=== PATIENT | male | born 1965 | race Caucasian/White ===

== ENCOUNTER 2022-06-26 14:47 | Outpatient (CLI) | payer OTHER, SELFPAY | END 2022-06-26 14:48 | disposition home or self-care (01) | PROVIDERS: PCP Family Medicine; Visit Provider Family Medicine | DX: Z00.00 Encounter for general adult medical examination without abnormal findings (principal); E11.9 Type 2 diabetes mellitus without complications; I10 Essential (primary) hypertension; D64.9 Anemia, unspecified; Z13.6 Encounter for screening for cardiovascular disorders; Z12.5 Encounter for screening for malignant neoplasm of prostate | CPT/HCPCS: 80053; 80061; 82043; 82570; 84153 ==

== ENCOUNTER 2022-07-10 14:50 | Outpatient (CLI) | payer OTHER, SELFPAY | END 2022-07-10 14:51 | disposition home or self-care (01) | LOC: NFLDREF 07-11 00:36 | PROVIDERS: PCP Family Medicine; Referring Provider Family Medicine; Visit Provider Family Medicine | DX: R17 Unspecified jaundice (principal) | CPT/HCPCS: 80076 ==

== ENCOUNTER 2023-02-24 15:00 | Outpatient (CLI) | payer OTHER, SELFPAY | END 2023-02-24 15:01 | disposition home or self-care (01) | LOC: NFLDREF 02-27 19:19 | PROVIDERS: PCP Family Medicine; Referring Provider Family Medicine; Visit Provider Family Medicine | DX: E11.9 Type 2 diabetes mellitus without complications (principal); I10 Essential (primary) hypertension | CPT/HCPCS: 80053; 82043; 82248; 82570 ==

== ENCOUNTER 2023-09-14 09:13 | Emergency (ER) | payer OTHER, SELFPAY ==
[2023-09-14 09:16] VITALS: BP 165/91; PULSE 98; RESP 18; TEMP 36.8; BMI 29.7
--- NOTE | 2023-09-14 09:33 | ED.LOWEXIN ---
HPI - Extremity Injury (Lower) General Time Seen by Provider: 09:33 Date Seen: 09/14/23 Chief Complaint: Extremity Pain/Injury, Lower Stated Complaint: Left knee leg pain Time Seen by Provider: 09/14/23 09:32 Source: patient and RN notes reviewed Mode of arrival: ambulatory (With crutches) Limitations: no limitations History of Present Illness HPI Narrative: This 58-year-old male is coming to the ER with worsening left knee pain. He notes that he has been having acute on chronic knee pain, was seen in clinic last week, did have x-rays. He has an upcoming orthopedic appointment with Dr. Partida in about 2 weeks. He is wearing crutches, has found a neoprene knee sleeve to give him extra support on this left knee. He was able to do some gardening this weekend, just started to have acute worsening of his pain yesterday, cannot really even bear weight on the knee without significant pain. He found relief and was able to sleep by putting the sleeve on the knee last night. There is no acute trauma. His x-rays do show arthritis. He does have a history of a degenerative meniscal tear in the right knee and did have surgery for that with improvement. He is wondering about having an MRI here today. He states he cannot work right now with help painful the knee is. He does have underlying von Willebrand's disease. I have reviewed his notes and x-rays from his clinic visit last week. Related Data Home Medications ?Medication ?Instructions ?Recorded ?Confirmed milk thistle 150 mg capsule 150 mg PO BID 10/21/21 09/14/23 Previous Rx's ?Medication ?Instructions ?Recorded lisinopril 40 mg tablet 40 mg PO QDAY #90 tabs 10/09/22 amlodipine 5 mg tablet 5 mg PO DAILY #90 tabs 07/03/23 simvastatin 20 mg tablet 20 mg PO QDAY #90 tabs 07/03/23 metformin 500 mg tablet 250 mg (1/2 x 500 mg) PO BID #30 09/06/23 tabs Allergies Allergy/AdvReac Type Severity Reaction Status Date / Time aspirin Allergy Severe Vonwillenbrand's Verified 09/14/23 09:22 disease Review of Systems Narrative: As per HPI. [facility] Medical History Tobacco use (07/26/09) ?Z72.0 - Tobacco use (ICD-10) Right inguinal hernia (06/07/09) ?K40.90 - Unilateral inguinal hernia, without obstruction or gangrene, not specified as recurrent (ICD-10) Plantar fasciitis ?M72.2 - Plantar fascial fibromatosis (ICD-10) Pain of left lower extremity ?M79.605 - Pain in left leg (ICD-10) Low back pain (06/07/09) ?M54.50 - Low back pain, unspecified (ICD-10) Ingrowing toenail of left foot ?L60.0 - Ingrowing nail (ICD-10) History of depression (07/26/09) ?Z86.59 - Personal history of other mental and behavioral disorders (ICD-10) Heel pain ?M79.673 - Pain in unspecified foot (ICD-10) Encounter for pre-operative examination ?Z01.818 - Encounter for other preprocedural examination (ICD-10) Encounter for annual physical exam ?Z00.00 - Encounter for general adult medical examination without abnormal findings (ICD-10) Dysphagia ?R13.10 - Dysphagia, unspecified (ICD-10) Cough in adult ?R05.9 - Cough, unspecified (ICD-10) Surgical History S/P medial meniscus repair of right knee (07/30/21) ?Z98.890 - Other specified postprocedural states (ICD-10) History of inguinal hernia repair (06/07/09) ?Z98.890 - Other specified postprocedural states (ICD-10) ?Z87.19 - Personal history of other diseases of the digestive system (ICD-10) History of cholecystectomy (08/06/10) ?Z90.49 - Acquired absence of other specified parts of digestive tract (ICD-10) History of appendectomy (07/26/09) ?Z90.49 - Acquired absence of other specified parts of digestive tract (ICD-10) Social History Narrative: Hx tobacco use Smoking Status: Former smoker Little interest or pleasure in doing things: not at all Feeling down, depressed, or hopeless: not at all Exam Const: Vital Signs, click to edit/add: Vital Signs - 24 hr 09/14/23 09:16 Temperature 98.2 F Pulse Rate [Right Pulse Oximeter] 98 Respiratory Rate 18 Blood Pressure [Ri ght Upper Arm] 165/91 H Oxygen Delivery Me thod Room Air This 58-year-old male is ambulatory into the ED with crutches, did have the neoprene sleeve on the left knee which was taken down. There is no palpable joint effusion, no popliteal fossa masses noted, no significant tenderness. He has limitation on range of motion, can get his knee flexed to about 90? but I cannot freely mobilize his knee very well with flexion extension, is painful for him. Patella tracks midline. There certainly is no joint effusion. Neurovascular is intact, no lower extremity edema. Cannot really manipulate his knee to do a Eusebio's. Documenting provider has reviewed patient's vital signs: yes Course Course ED Course: Reviewed with patient that any MRI emergently is not indicated here. He needs the prior authorization which we cannot do emergently for him. I will make sure that the MRI has been ordered and that this process is going on, will also try to move up his orthopedic appointment. Reviewed with him that I can provide a note to be off work in the meantime. We did discuss pain management, I did offer something stronger if needed, he declines. He states that he is dealt with knee pain for some 30 years, has went through surgeries for ruptured appendicitis, his right knee meniscus repair and really has dealt with pain, does not feel he wants anything stronger. He will use Tylenol. He does wonder if he can potentially schedule his MRI while awaiting the prior authorization, nursing staff will check on that. We will call [facility]. Reevaluation(s) Time of Reevaluation #1: 10:12 Reevaluation #1: MRI is on the schedule for this coming per nursing staff. Consultations Consultation #1: Did speak with Dr. Sanchez personally. The order for the MRI is in, will be going through the prior authorization process through clinic. Patient will have to wait for this. Time: 09:54 Vital Signs Vital signs: Initial Vital Signs Temperature 98.2 F 09/14/23 09:16 Temperature Source Temporal Artery Scan 09/14/23 09:16 Pulse Rate 98 09/14/23 09:16 Respiratory Rate 18 09/14/23 09:16 Blood Pressure 165/91 H 09/14/23 09:16 Blood Pressure Mean 115 H 09/14/23 09:16 Blood Pressure Position Sitting 09/14/23 09:16 Oxygen Delivery Method Room Air 09/14/23 09:16 Vital Signs Temperature 98.2 F 09/14/23 09:16 Pulse Rate 98 09/14/23 09:16 Respiratory Rate 18 09/14/23 09:16 Blood Pressure 165/91 H 09/14/23 09:16 Oxygen Delivery Method Room Air 09/14/23 09:16 Temperature 98.2 F 09/14/23 09:16 Pulse Rate 98 09/14/23 09:16 Respiratory Rate 18 09/14/23 09:16 Blood Pressure 165/91 H 09/14/23 09:16 Oxygen Delivery Method Room Air 09/14/23 09:16 Discharge Plan Discharge Clinical Impression: Acute internal derangement of left knee, Osteoarthritis of left knee Patient Disposition: Home, Self-Care Condition: Stable Instructions: Osteoarthritis (ED) Additional Instructions: Use your crutches and knee brace that you have as needed for pain-free weight-bearing. Tylenol per bottle directions if needed for pain control. You orthopedic appointment has been moved up to September 22. Do agree that MRI is needed but it will need prior authorization and this is in process through the clinic already. Follow-up in clinic if further concerns about your knee in the interim. I did provide you a note to be out of work until September 22 when you can see Orthopedics. Activity Level: Activity as Tolerated Prescriptions: No Action milk thistle 150 mg capsule 150 mg PO BID Rx Instructions: give with meal/snack lisinopril 40 mg tablet 40 mg PO QDAY Qty: 90 1RF simvastatin 20 mg tablet 20 mg PO QDAY Qty: 90 0RF amlodipine 5 mg tablet 5 mg PO DAILY Qty: 90 0RF metformin 500 mg tablet 250 mg PO BID Qty: 30 0RF Rx Instructions: take 1/2 po bid with meals Follow Up/Referrals: Leland Suero MD [Primary Care Provider] - Stand Alone Forms: MyHealth Info Instructions
== END 2023-09-14 10:20 | disposition home or self-care (01) ==
PROVIDERS: Emergency Provider Family Medicine; PCP Family Medicine
DX: M23.92 Unspecified internal derangement of left knee (principal); M17.12 Unilateral primary osteoarthritis, left knee
CPT/HCPCS: 99282; 99283

== ENCOUNTER 2023-09-28 18:16 | Outpatient (CLI) | payer OTHER, SELFPAY | END 2023-09-28 18:17 | disposition home or self-care (01) | LOC: NFLDREF 10-01 05:33 | PROVIDERS: PCP Family Medicine; Referring Provider Family Medicine; Visit Provider Family Medicine | DX: Z00.00 Encounter for general adult medical examination without abnormal findings (principal); E11.9 Type 2 diabetes mellitus without complications; I10 Essential (primary) hypertension; E66.9 Obesity, unspecified; D68.00 Von Willebrand disease, unspecified; Z12.5 Encounter for screening for malignant neoplasm of prostate | CPT/HCPCS: 80053; 80061; 82043; 82570; G0103 ==

== ENCOUNTER 2023-09-30 12:40 | Outpatient (CLI) | payer OTHER, SELFPAY ==
--- NOTE | 2023-09-30 13:00 | MR_ITS ---
[address] [address] Phone:?[phone] Fax:?[phone] Referring Physician Information: Urbano Partida M.D. [id number] [facility] [address] Phone:?[phone] Fax:?[phone] Patient:Alexia Lugo D.O.B:?1965 Sex:?Male Phone:?[phone] [facility] MRN:?[id number] Exam Date:?09/30/2023 EXAM: MRI OF THE LEFT KNEE CLINICAL INFORMATION: The patient is a 58-year-old with left knee pain. Evaluate for meniscal root tear. PRIOR SURGERY: None reported. COMPARISON STUDIES: Comparison is made to the report of the prior MRI examination of the left knee dated 04/03/2016. TECHNICAL INFORMATION: Imaging was performed on a high-field, 1.5 Luly MR scanner. Coronal proton-density and coronal STIR imaging was performed in addition to sagittal proton-density and fat-suppressed proton-density imaging. Axial proton-density and fat-suppressed T2 imaging was also produced. FINDINGS: Articular/Extraarticular collections: Effusion: Mild to moderate. Popliteal cyst: Small to moderate, seen on sagittal series 6 image 6. Loose bodies: No well-defined intra-articular loose bodies are present. Subcutaneous and extraarticular soft tissues: Within normal limits. Osseous structures: No evidence for marrow edema or cortical injury. No evidence for fracture or stress injury. No evidence for destructive bony lesion. Ligamentous structures: ACL: Intact and normal in appearance. PCL: Intact and normal in appearance. MCL: Intact and normal in appearance. LCL: Intact and normal in appearance. Posterolateral corner: Intact and normal in appearance. Posteromedial corner: No posteromedial corner soft tissue injury. Semimembranosus and pes anserine tendons demonstrate no tendinopathy or associated bursitis. Extensor mechanism/Patellar retinacular structures: Patellar tendon: Intact, without tendinopathy. Quadriceps tendon: Intact, without tendinopathy. Retinacula: The medial and lateral retinacula are intact. The medial patellofemoral ligament is intact. Medial compartment: Medial meniscus: The medial meniscus is abnormal in appearance. There is radial tearing of the far posterior aspect of the medial meniscus at the meniscotibial attachment seen on coronal series 7 image 24 and on sagittal series 6 image 13. The area of tearing measures 7 mm in greatest dimension. Intrasubstance degeneration involving the anterior, middle, and posterior portions of the medial meniscus can be seen. No additional areas of well-defined tearing are noted. No parameniscal cyst formation is identified. Medial femoral condyle: Full-thickness and near full-thickness chondral loss can be seen involving the central and lateral weightbearing surfaces of the medial femoral condyle on coronal series 7 image 22 and on sagittal series 5 image 12. The area of chondromalacia and chondral loss measures 23 mm in mediolateral dimension and 25 mm in anteroposterior dimension. Medial tibial plateau: No chondromalacia, chondral defect, or osteochondral abnormality. Lateral compartment: Lateral meniscus: No evidence for lateral meniscal tearing is present. No evidence for parameniscal cyst formation can be seen. Lateral femoral condyle: No chondromalacia, chondral defect, or osteochondral abnormality. Lateral tibial plateau: No chondromalacia, chondral defect, or osteochondral abnormality. Patellofemoral compartment: Patella: Broad-based changes of grade II chondromalacia can be seen involving the patellar apex and adjacent portions of the medial and lateral patellar facets on axial series 3 image 12, measuring 24 mm in mediolateral dimension and 15 mm in craniocaudal dimension. Trochlea: No chondromalacia, chondral defect, or osteochondral abnormality. Neurovascular: No definite neurovascular abnormalities are seen. CONCLUSION: 1. Radial tearing of the far posterior aspect of the medial meniscus at the meniscotibial attachment. No lateral meniscal tearing is seen. 2. Full-thickness and near full-thickness chondral loss along the weightbearing surfaces of the medial femoral condyle. 3. 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 4. The cruciate and collateral ligaments appear intact. 5. No acute bony injuries are seen. [facility] Electronically signed on 09/30/2023 4:22:00 PM by Tony Sutton M.D.
== END 2023-09-30 12:41 | disposition home or self-care (01) ==
LOC: MRI 12:40
PROVIDERS: PCP Family Medicine; Visit Provider Orthopaedic Surgery
DX: M25.562 Pain in left knee (principal); S83.242A Other tear of medial meniscus, current injury, left knee, initial encounter; M22.42 Chondromalacia patellae, left knee; M23.92 Unspecified internal derangement of left knee
CPT/HCPCS: 73721

== ENCOUNTER 2023-10-13 05:59 | Day surgery (SDC) | payer OTHER, SELFPAY ==
[2023-10-13] VITALS (12 sets, daily range): BP systolic 134–151; BP diastolic 70–93; PULSE 65–78; RESP 16; TEMP 36.7–36.9; O2SAT 89–96; BMI 29.8
[2023-10-13] MEDS: SODIUM CHLORIDE 0.9 % (FLUSH) 10 ML SYRINGE IVF (06:30)
[2023-10-13] MEDS: LACTATED RINGERS 1000 ML 1,000 ML 100 ML IV ×2 (06:30→09:52)
[2023-10-13] MEDS: DESMOPRESSIN ACETATE 4 MCG/ML inj 30 MCG IVPB (07:30)
[2023-10-13] MEDS: CEFAZOLIN 2 GM INJ IVP (09:52)
--- NOTE | 2023-10-13 11:15 | PM.ORPRC ---
Procedure Note Date of procedure: 10/13/23 Procedure: PREOPERATIVE DIAGNOSIS: Left knee medial meniscus root tear POSTOPERATIVE DIAGNOSIS: Left knee medial meniscus root tear NAME OF OPERATION: Left knee arthroscopic medial meniscus root repair SURGEON: Urbano Partida MD SUPERVISOR BINDERY: JUSTYN Berumen ANESTHESIA: Spinal ESTIMATED BLOOD LOSS: 0 mL COMPLICATIONS: None SPECIMENS: None DRAINS: None PREOPERATIVE ANTIBIOTICS: Ancef 2 gram INDICATIONS: The patient is a 58-year-old male with a history of left knee medial pain. MRI scan is consistent with a medial meniscus root tear. Despite appropriate nonoperative management, including activity modification, antiinflammatories, [id number] pain medication, bracing, physical therapy, and injections they continue to have pain and disability. Operative intervention was offered. The risks, benefits and expected outcomes were discussed in detail. These included but were not limited to: Infection, bleeding, injury to blood vessel or nerve, venous thromboembolism. All questions were answered to their satisfaction. PROCEDURE: Spinal anesthesia was administered. The patient was placed supine on the operating room table. The left lower extremity was prepped and draped in the usual sterile fashion. The limb was exsanguinated with the Tony bandage. The pneumatic tourniquet was inflated to 300 mmHg. A standard anterolateral portal was established. The arthroscope was introduced. The working portal was established anteromedially. Diagnostic arthroscopy was performed with findings as follows: The suprapatellar pouch is normal. Articular surface on the patella shows grade 1/2 change. Articular surface on the trochlea shows grade 1/2 change. The medial gutter is normal. The medial compartment shows diffuse grade 3 change on the medial femoral condyle, grade 2 change on the medial tibial plateau. The medial meniscus has a radial tear of the posterior horn at the tibial attachment, detaching it from the tibia.. The notch shows the ACL to be intact. The lateral compartment shows normal articular cartilage on the lateral femoral condyle and lateral tibial plateau. The lateral meniscus is normal. The lateral gutter is normal. The few remaining fibers of meniscus attached to the tibia were released with the shaver. The footprint was debrided. Unstable chondral flaps on the medial femoral condyle were debrided. The knee scorpion was used to pass a fiber link x 2 in the posterior horn of the medial meniscus. The tibial drill guide was used over the footprint of the root. A longitudinal incision over the anteromedial face of the tibia was placed. The flip cutter was drilled into the footprint. The flip cutter was flipped and back cut 10 mm. It was removed and exchanged for a fiber stick. The fiber stick was brought out the anteromedial portal and was used to shuttle both of the fiber link luggage tag sutures on the posterior horn out the anteromedial tibia. We then tensioned the sutures and fixed them to the tibia with a SwiveLock anchor. This provided an excellent repair of the posterior tibial attachment of the medial meniscus to its anatomic footprint. The power pick was used to microfracture the notch both medially and laterally. Arthroscopic instruments were removed, the portal sites were Steri-Stripped closed, the incision over the tibia was closed with 3-0 Vicryl and 4-0 Monocryl. A dry dressing was applied, the tourniquet was released. Sponge and needle counts were correct x 2. The patient tolerated the procedure well. There were no apparent complications. They were carefully transferred to the hospital bed and taken to the postanesthesia care unit in satisfactory condition. PLAN: The patient will be discharged to home. He may weight bear as tolerates. Range of motion will be allowed from 0-90 degrees x 2 weeks then unrestricted range of motion. He will follow up in 2 weeks for a wound check.
--- NOTE | 2023-10-13 11:23 | W.ANESCHARGE ---
Anesthesia Charges Start Date/Time Anesthesia Start Date: 10/13/23 Anesthesia Start Time: 09:37 Stop Date/Time Anesthesia Stop Date: 10/13/23 Anesthesia Stop Time: 11:40
--- NOTE | 2023-10-13 12:22 | P.NB_ITS ---
Nerve Block Nerve Block Time Seen by Provider: 11:35 Date Seen: 10/13/23 Type of block requested by surgeon for post-operative analgesia: geniculars Side: left Time out performed: Yes Verification of patient name: Yes Verification of date of : Yes Site marking: site marked Name of person performing procedure: Alberto Ansari Continuous monitoring Was continuous monitoring of O2 sat, B/P, traffic monitor specialist, recorded every 15 minutes?: Yes Procedure Checklist: sterile prep, needles and gloves Ultrasound guided. Images saved: No Medications given in 5ml increments after negative aspiration: Ropivicaine %: 0.5 mL: 12 Needle gauge: 25 Patient tolerated procedure well: Yes Additional comments: Injected in 4ml increments after negative aspiration Block Charges Block Charge (with Pro Fee): Genicular Nerve Block Use of Ultrasound Machine for Block: No
--- NOTE | 2023-10-13 12:24 | W.ANESCHARGE ---
Anesthesia Charges Start Date/Time Anesthesia Start Date: 10/13/23 Anesthesia Start Time: 09:37 Stop Date/Time Anesthesia Stop Date: 10/13/23 Anesthesia Stop Time: 11:40
[2023-10-13] MEDS: METOCLOPRAMIDE HCL 5 MG/ML INJ 10 MG IVP (13:10)
== END 2023-10-13 13:35 | disposition home or self-care (01) ==
LOC: OR 06:00
PROVIDERS: PCP Family Medicine; Visit Provider Orthopaedic Surgery
PROC: (CPT 29882; principal; 2023-10-13 09:30)
DX: S83.242A Other tear of medial meniscus, current injury, left knee, initial encounter (principal); G89.18 Other acute postprocedural pain; E11.9 Type 2 diabetes mellitus without complications; I10 Essential (primary) hypertension
CPT/HCPCS: 29882; 01400; 64454; 82962; C1713; J0690; J1100; J1170; J2405; J2597; J2704; J2765; J2795; J3010; J7120

== ENCOUNTER 2023-10-21 13:41 | Outpatient (CLI) | payer OTHER, SELFPAY ==
--- NOTE | 2023-10-21 14:00 | CRLHL7_ITS ---
For Patients: As a result of the Century Cures Act, medical imaging exams and procedure reports are released immediately into your electronic medical record. You may view this report before your referring provider. If you have questions, please contact your health care provider. INDICATION: Left lower extremity tenderness, postprocedure TECHNIQUE: Ultrasound venous duplex lower left extremity. Compression venous exam was performed using gallegos-scale, color Doppler, and spectral Doppler analysis. COMPARISON: None. FINDINGS: Sonographic imaging demonstrates the left common femoral, deep femoral, superficial femoral, popliteal, posterior tibial and greater saphenous and the contralateral right common femoral veins to be fully compressible with normal color Doppler blood flow. IMPRESSION: Normal left lower extremity venous ultrasound, no sign of deep venous thrombosis. Dictated by Humberto Chávez MD @ 10/21/2023 2:35:39 PM (Electronically Signed)
== END 2023-10-21 13:42 | disposition home or self-care (01) ==
PROVIDERS: PCP Family Medicine; Visit Provider Physician Assistant
DX: M79.662 Pain in left lower leg (principal); Z98.890 Other specified postprocedural states
CPT/HCPCS: 93971

== ENCOUNTER 2024-01-07 09:00 | Outpatient (RCR) | payer OTHER, SELFPAY | END 2024-01-07 10:53 | disposition home or self-care (01) | PROVIDERS: PCP Family Medicine; Visit Provider Orthopaedic Surgery | DX: S83.204D Other tear of unspecified meniscus, current injury, left knee, subsequent encounter (principal); Z51.89 Encounter for other specified aftercare | CPT/HCPCS: 97110; 97112; 97140; 97162; 97530; 97535 ==

== ENCOUNTER 2024-03-03 09:11 | Emergency (ER) | payer OTHER, SELFPAY ==
[2024-03-03 09:16] VITALS: BP 149/97; PULSE 75; RESP 18; TEMP 36.6; O2SAT 98; BMI 30.7
--- NOTE | 2024-03-03 09:42 | ED_ITS ---
HPI - General Adult General Chief complaint: Neck Injury/Pain Stated complaint: Pos pinched nerve in neck, neck pain Time Seen by Provider: 03/03/24 09:12 History of Present Illness HPI narrative: come to ed with concerns of a painful neck. pain severe with movement. has known arthritis in his neck. did sleep on his left side all night. took 400 mg of ibuprofen at 0730. pain he noticed upon arising at 0700 . 58-year-old man presenting to the emergency department with complaint of neck pain especially on the left side. Does note some arthritis present in his neck. Noticed it really upon waking this morning. Any movement really hurts. No radicular pain. No swelling. No new injury. Has taken ibuprofen without relief. Does recall severe neck pain some years back indicating area of occipital insertion as point tenderness. This time especially on the left mid n betty. No sore throat or indication difficulty breathing. Related Data Home Medications ?Medication ?Instructions ?Recorded ?Confirmed milk thistle 150 mg capsule 150 mg PO BID 10/21/21 01/06/24 Previous Rx's ?Medication ?Instructions ?Recorded amlodipine 5 mg tablet 5 mg PO DAILY #90 tabs 09/29/23 lisinopril 40 mg tablet 40 mg PO QDAY #90 tabs 09/29/23 metformin 500 mg tablet 250 mg (1/2 x 500 mg) PO BID #90 09/29/23 tabs simvastatin 20 mg tablet 20 mg PO QDAY #90 tabs 09/29/23 ferrous gluconate 324 mg (38 mg 324 mg PO QDAY #90 tabs 10/22/23 iron) tablet Allergies Allergy/AdvReac Type Severity Reaction Status Date / Time aspirin Allergy Severe Vonwillenbrand's Verified 03/03/24 09:16 disease Review of Systems Status of ROS: Reports: 6 or more systems reviewed and unremarkable except as noted in History and below [facility] Medical History 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, unspecified eye (ICD-10) Osteoarthritis of right knee ?M17.11 - Unilateral primary osteoarthritis, right knee (ICD-10) Osteoarthritis of left knee ?M17.12 - Unilateral primary osteoarthritis, left knee (ICD-10) Tobacco use (07/26/09) ?Z72.0 - Tobacco use (ICD-10) Right inguinal hernia (06/07/09) ?K40.90 - Unilateral inguinal hernia, without obstruction or gangrene, not specified as recurrent (ICD-10) Plantar fasciitis ?M72.2 - Plantar fascial fibromatosis (ICD-10) Pain of left lower extremity ?M79.605 - Pain in left leg (ICD-10) Low back pain (06/07/09) ?M54.50 - Low back pain, unspecified (ICD-10) Ingrowing toenail of left foot ?L60.0 - Ingrowing nail (ICD-10) History of depression (07/26/09) ?Z86.59 - Personal history of other mental and behavioral disorders (ICD-10) Heel pain ?M79.673 - Pain in unspecified foot (ICD-10) Encounter for pre-operative examination ?Z01.818 - Encounter for other preprocedural examination (ICD-10) Encounter for annual physical exam ?Z00.00 - Encounter for general adult medical examination without abnormal findings (ICD-10) Dysphagia ?R13.10 - Dysphagia, unspecified (ICD-10) Cough in adult ?R05.9 - Cough, unspecified (ICD-10) Surgical History H/O medial meniscus repair of left knee (10/13/23) ?Z98.890 - Other specified postprocedural states (ICD-10) S/P medial meniscus repair of right knee (07/30/21) ?Z98.890 - Other specified postprocedural states (ICD-10) History of inguinal hernia repair (06/07/09) ?Z98.890 - Other specified postprocedural states (ICD-10) ?Z87.19 - Personal history of other diseases of the digestive system (ICD-10) History of cholecystectomy (08/06/10) ?Z90.49 - Acquired absence of other specified parts of digestive tract (ICD- 10) History of appendectomy (07/26/09) ?Z90.49 - Acquired absence of other specified parts of digestive tract (ICD- 10) Social History Narrative: Hx tobacco use Smoking Status: Former smoker What tobacco products do you use: cigarettes Smoking quit date/years: >15 years ago Do you use any of these nicotine containing products: None Second hand tobacco smoke exposure: No How often do you have a drink containing alcohol: monthly or less Alcohol type: beer How many standard drinks containing alcohol do you have on a typical day: 1 or 2 How often do you have six or more drinks on one occasion: Never AUDIT-C Alcohol total score: 1 Non-prescribed substance use: denies use Caffeine: Yes service: No Exam Narrative: Exam Narrative: Eyes are red rimmed. Is seated stiffly a blanket wrapped about him. There is a great deal of right trapezial and paracervical muscle tension not so much tenderness. Tenderness is primarily elicited with deeper palpation at the sulcus lateral to the paracervical musculatures on the left about in the middle of the neck. No midline neck or back tenderness. No pulsatile masses or unusual swellings. Went up other than stiffly peers be moving extremities with normal strength. Resistant to movement of his neck as it illicits more pain. Const: Vital Signs, click to edit/add: Vital Signs - 24 hr 03/03/24 09:16 Temperature 98 F Pulse Rate [Pulse Oximeter] 75 Respiratory Rate 18 Blood Pressure [Ri ght Upper Arm] 149/97 H Pulse Oximetry 98 Oxygen Delivery Me thod Room Air Documenting provider has reviewed patient's vital signs: yes Course Vital Signs Vital signs: Initial Vital Signs Temperature 98 F 03/03/24 09:16 Temperature Source Temporal Artery Scan 03/03/24 09:16 Pulse Rate 75 03/03/24 09:16 Pulse Rhythm Regular 03/03/24 09:16 Respiratory Rate 18 03/03/24 09:16 Blood Pressure 149/97 H 03/03/24 09:16 Blood Pressure Mean 114 H 03/03/24 09:16 Blood Pressure Position Semi-Fowlers 03/03/24 09:16 Pulse Oximetry 98 03/03/24 09:16 Oxygen Delivery Method Room Air 03/03/24 09:16 Vital Signs Temperature 98 F 03/03/24 09:16 Pulse Rate 75 03/03/24 09:16 Respiratory Rate 18 03/03/24 09:16 Blood Pressure 149/97 H 03/03/24 09:16 Pulse Oximetry 98 03/03/24 09:16 Oxygen Delivery Method Room Air 03/03/24 09:16 Temperature 98 F 03/03/24 09:16 Pulse Rate 75 03/03/24 09:16 Respiratory Rate 18 03/03/24 09:16 Blood Pressure 149/97 H 03/03/24 09:16 Pulse Oximetry 98 03/03/24 09:16 Oxygen Delivery Method Room Air 03/03/24 09:16 Medical Decision Making MDM Narrative Medical decision making narrative: This is not appear to be in occipital neuralgia at this point. I do not see any swelling to indicate vascular disruption. There are no radicular symptoms to suggest herniated disc as cause impinging on the nerve root. This does appear to be torticollis likely related to facet/osteoarthritic irritation. Muscle spasm. Without trauma or unusual weakness I do not think any imaging is necessary at this time. Discussed pain management. Would appreciate some potential immediate relief. Offered bupivacaine injection. Discussed risk benefits and proceeded to fan total of 3 mL in 2 points of maximal tenderness in the left neck. Tolerated this quite well. And did begin to offer some relief. Placed a soft collar is he thought it might be helpful. Prescribing then [place], prednisone and Flexeril from [facility]. Is to also continue with ibuprofen. Will likely need chiropractic or osteopathic or physical therapy involvement. See patient discharge plan for further discussion. Medical Records Medical records reviewed: Yes I reviewed the patient's medical records Discharge Plan Discharge Clinical Impression: Acute torticollis, Cervicalgia Patient Disposition: Home w/ Parent or Adult Condition: Stable Additional Instructions: Gentle pull-down stretching as demonstrated might be beneficial. See handout also on stretches for the upper back. Prescribing prednisone and [place] and Flexeril from [facility]. Can wear soft collar for comfort over this next week. Consider follow-up with chiropractic or osteopathic medicine intervention. Prescriptions: No Action metformin 500 mg tablet 250 mg PO BID Qty: 90 3RF Rx Instructions: take 1/2 po bid with meals amlodipine 5 mg tablet 5 mg PO DAILY Qty: 90 3RF lisinopril 40 mg tablet 40 mg PO QDAY Qty: 90 3RF simvastatin 20 mg tablet 20 mg PO QDAY Qty: 90 3RF milk thistle 150 mg capsule 150 mg PO BID Rx Instructions: give with meal/snack ferrous gluconate 324 mg (38 mg iron) tablet 324 mg PO QDAY Qty: 90 0RF Follow Up/Referrals: Leland Suero MD [Primary Care Provider] - Stand Alone Forms: [employer] Info Instructions
== END 2024-03-03 10:08 | disposition home or self-care (01) ==
LOC: ED 10:02
PROVIDERS: Emergency Provider Family Medicine; PCP Family Medicine
DX: M43.6 Torticollis (principal); M54.2 Cervicalgia
CPT/HCPCS: 99283; 99284

== ENCOUNTER 2024-04-11 21:00 | Emergency (ER) | payer OTHER, SELFPAY ==
[2024-04-11 21:09] VITALS: BP 189/97; PULSE 60; RESP 16; TEMP 35.9; O2SAT 97
[2024-04-11 22:05] LABS: PCR FLU A Negative PCR FLU A (Negative); PCR FLU B Negative PCR FLU B (Negative); PCR RSV Negative PCR RSV (Negative); SARS PCR* Negative SARS-CoV-2 (Negative)
--- NOTE | 2024-04-11 22:51 | ED_ITS ---
HPI - General Adult General Date Seen: 04/11/24 Chief complaint: Abdominal Pain Stated complaint: Stomach and back pain, vomiting Time Seen by Provider: 04/11/24 22:25 History of Present Illness HPI narrative: 58-year-old gentleman with history of type 2 diabetes, elevated BMI, hypertension, cervical radiculopathy, von Willebrand's disease presenting to emergency department this evening with nausea and abdominal pain. Symptoms began this morning around 8:00 a.m.. History is limited by the patient's pain and nausea so supplements his history. He has a past surgical history including cholecystectomy, appendectomy, and some sort of stomach surgery that occurred when he was an infant. Apparently ?the plumbing of his stomach was not hooked up right. ? He has developed generalized abdominal pain, worsening left upper quadrant today they got worse throughout the afternoon. It is associated with repetitive episodes of nonbloody, nonbilious emesis. Bowel movements were normal yesterday. Today not had any bowel movement. He says he feels like he needs to have a stool but cannot. Urination has been normal. He has not had a fever. No clear exacerbating or alleviating factors for the pain and nausea. No known sick exposures. is not sick. Related Data Home Medications ?Medication ?Instructions ?Recorded ?Confirmed milk thistle 150 mg capsule 150 mg PO BID 10/21/21 04/11/24 Previous Rx's ?Medication ?Instructions ?Recorded amlodipine 5 mg tablet 5 mg PO DAILY #90 tabs 09/29/23 lisinopril 40 mg tablet 40 mg PO QDAY #90 tabs 09/29/23 metformin 500 mg tablet 250 mg (1/2 x 500 mg) PO BID #90 09/29/23 tabs simvastatin 20 mg tablet 20 mg PO QDAY #90 tabs 09/29/23 Allergies Allergy/AdvReac Type Severity Reaction Status Date / Time aspirin Allergy Severe Vonchristinebrand's Verified 03/03/24 09:16 disease [facility] Medical History 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, unspecified eye (ICD-10) Osteoarthritis of right knee ?M17.11 - Unilateral primary osteoarthritis, right knee (ICD-10) Osteoarthritis of left knee ?M17.12 - Unilateral primary osteoarthritis, left knee (ICD-10) Tobacco use (07/26/09) ?Z72.0 - Tobacco use (ICD-10) Right inguinal hernia (06/07/09) ?K40.90 - Unilateral inguinal hernia, without obstruction or gangrene, not specified as recurrent (ICD-10) Plantar fasciitis ?M72.2 - Plantar fascial fibromatosis (ICD-10) Pain of left lower extremity ?M79.605 - Pain in left leg (ICD-10) Low back pain (06/07/09) ?M54.50 - Low back pain, unspecified (ICD-10) Ingrowing toenail of left foot ?L60.0 - Ingrowing nail (ICD-10) History of depression (07/26/09) ?Z86.59 - Personal history of other mental and behavioral disorders (ICD-10) Heel pain ?M79.673 - Pain in unspecified foot (ICD-10) Encounter for pre-operative examination ?Z01.818 - Encounter for other preprocedural examination (ICD-10) Encounter for annual physical exam ?Z00.00 - Encounter for general adult medical examination without abnormal findings (ICD-10) Dysphagia ?R13.10 - Dysphagia, unspecified (ICD-10) Cough in adult ?R05.9 - Cough, unspecified (ICD-10) Surgical History H/O medial meniscus repair of left knee (10/13/23) ?Z98.890 - Other specified postprocedural states (ICD-10) S/P medial meniscus repair of right knee (07/30/21) ?Z98.890 - Other specified postprocedural states (ICD-10) History of inguinal hernia repair (06/07/09) ?Z98.890 - Other specified postprocedural states (ICD-10) ?Z87.19 - Personal history of other diseases of the digestive system (ICD-10) History of cholecystectomy (08/06/10) ?Z90.49 - Acquired absence of other specified parts of digestive tract (ICD- 10) History of appendectomy (07/26/09) ?Z90.49 - Acquired absence of other specified parts of digestive tract (ICD- 10) Social History Narrative: Hx tobacco use Smoking Status: Former smoker What tobacco products do you use: cigarettes Smoking quit date/years: >15 years ago Do you use any of these nicotine containing products: None Second hand tobacco smoke exposure: No How often do you have a drink containing alcohol: monthly or less Alcohol type: beer How many standard drinks containing alcohol do you have on a typical day: 1 or 2 How often do you have six or more drinks on one occasion: Never AUDIT-C Alcohol total score: 1 Non-prescribed substance use: denies use Caffeine: Yes service: No Exam Narrative: Exam Narrative: Constitutional: Appears well-developed and well-nourished. Alert. He is holding his emesis bag right below his mouth and does not want to talk due to discomfort and nausea. I am able to slowly lie him back for abdominal exam. HENT: Head: Atraumatic. Nose: Nose normal. Mouth/Throat: Oral mucosa is clear and moist. no trismus. Eyes: Conjunctivae normal. EOM normal. Pupils equal, round, and reactive to light. No scleral icterus. Neck: Normal range of motion. Neck supple. No tracheal deviation present. Cardiovascular: Normal rate, regular rhythm. No gallop. No friction rub. No murmur heard. Symmetric radial artery pulses Pulmonary/Chest: Effort normal. No stridor. No respiratory distress. No wheezes. No rales. No rhonchi . No tenderness. Abdominal: Soft. Bowel sounds normal. No distension. No mass. Diffuse tenderness. Healed vertical midline ventral incision above the umbilicus. No rebound. Positive upper guarding. Musculoskeletal: RUE: Normal range of motion. No tenderness. No deformity LUE: Normal range of motion. No tenderness. No deformity RLE: Normal range of motion. No edema. No tenderness. No deformity LLE: Normal range of motion. No edema. No tenderness. No deformity Neurological: Alert and oriented to person, place, and time. Normal strength. CN II-VII intact. No sensory deficit. GCS eye subscore is 4. GCS verbal subscore is 5. GCS motor subscore is 6. Normal coordination Skin: Skin is warm and dry. No rash noted. No pallor. Normal capillary refill. Psychiatric: Normal mood. Normal affect. Const: Vital Signs, click to edit/add: Vital Signs - 24 hr 04/11/24 21:09 Temperature 96.6 F L Pulse Rate [Pulse Oximeter] 60 Respiratory Rate 16 Blood Pressure [Ri ght Upper Arm] 189/97 H Pulse Oximetry 97 Oxygen Delivery Me thod Room Air Course Vital Signs Vital signs: Initial Vital Signs Temperature 96.6 F L 04/11/24 21:09 Temperature Source Temporal Artery Scan 04/11/24 21:09 Pulse Rate 60 04/11/24 21:09 Respiratory Rate 16 04/11/24 21:09 Blood Pressure 189/97 H 04/11/24 21:09 Blood Pressure Mean 127 H 04/11/24 21:09 Blood Pressure Position Sitting 04/11/24 21:09 Pulse Oximetry 97 04/11/24 21:09 Oxygen Delivery Method Room Air 04/11/24 21:09 Vital Signs Temperature 96.6 F L 04/11/24 21:09 Pulse Rate 60 04/11/24 21:09 Respiratory Rate 16 04/11/24 21:09 Blood Pressure 189/97 H 04/11/24 21:09 Pulse Oximetry 97 04/11/24 21:09 Oxygen Delivery Method Room Air 04/11/24 21:09 Temperature 96.6 F L 04/11/24 21:09 Pulse Rate 60 04/11/24 21:09 Respiratory Rate 16 04/11/24 21:09 Blood Pressure 189/97 H 04/11/24 21:09 Pulse Oximetry 97 04/11/24 21:09 Oxygen Delivery Method Room Air 04/11/24 21:09 Medications Administered Medications: Generic Name Dose Route Start Last Admin Trade Name Frenicholas PRN Reason Stop Dose Admin Hydromorphone HCl 0.5 mg 04/11/24 22:57 04/12/24 00:24 Hydromorphone 0.5 Mg/0.5 Ml Inj IVP 0.5 mg Q1H PRN Administration Pain Discontinued Medications Generic Name Dose Route Start Last Admin Trade Name Freq PRN Reason Stop Dose Admin Sodium Chloride 500 mls @ 500 mls/hr 04/11/24 22:57 04/12/24 00:20 0.9 % Sodium Chloride 500 Ml IV 04/11/24 23:56 Infused .Q1H ONE Infusion Ondansetron HCl 4 mg 04/11/24 22:57 04/11/24 23:16 Ondansetron 2 Mg/Ml Inj IVP 04/11/24 22:58 4 mg ONCE ONE Administration Medical Decision Making MDM Narrative Medical decision making narrative: Presented to the Emergency Department with nausea, repetitive vomiting, and abdominal pain. Pain is more prominent on the left in the left upper quadrant than on the right abdomen. The differential diagnosis of abdominal pain includes: Bowel Obstruction, Ulcer, Ischemia, Diverticulitis, Pancreatitis, UTI, kidney stone, Enteritis/Colitis, amongst many other etiologies. Patient is status post appendectomy and cholecystectomy. Laboratory testing does not reveal a cause for the patient's pain. CT scan is obtained and shows evidence for a 9 mm obstructing stone in the proximal left UE ureter. This is likely the cause for the patient's symptoms. Patient will require hospitalization due to the severity of his pain, only partly controlled with IV opiates, and nausea. Additionally since the stone is large and proximal it is not likely to pass in the outpatient setting. Patient will require hospitalization for pain control and expeditious urology consultation. Urinalysis is negative for infection. There is no evidence for renal failure associated with the kidney stone. No need for emergent transfer but does need expeditious transfer. Unfortunately [facility] [place] [facility] I have contacted [facility], [facility], [facility], [facility], [place], and none have [facility] open beds [facility]. I have also contacted [facility] and they have no open beds but have placed the patient on to a wait list. At this point he will have to board here in the ER. I have ordered maintenance IV fluids and p.r.n. pain meds. Discussed with my partner, Dr. Valverde, will monitor his condition overnight. Lab Data Labs: Lab Results 04/11/24 04/11/24 04/12/24 Range/Units 21:13 23:15 00:30 WBC 12.22 H (4.50-11.00) K/uL RBC 5.48 (4.30-5.90) m/uL Hgb 16.4 (13.5-17.5) gm/dL Hct 47.7 (37.0-53.0) % MCV 87 (80-100) fL MCH 30 (26-34) pg MCHC 34 (32-36) gm/dL RDW Coeff of Abelardo 12.2 (11.5-15.5) % Plt Count 212 (140-440) K/uL Neut % (Auto) 88.6 H (42.0-72.0) % Lymph % (Auto) 6.1 L (20-44) % Fleming % (Auto) 4.8 (0.0-11.0) % Eos % (Auto) 0.1 (0.0-7.0) % Baso % (Auto) 0.2 (0.0-3.0) % Neut # (Auto) 10.80 H (1.7-7.0) K/uL Lymph # (Auto) 0.70 L (0.90-2.90) K/uL Fleming # (Auto) 0.60 (0.00-0.90) K/UL Eos # (Auto) 0.00 (0.00-0.50) K/uL Baso # (Auto) 0.00 (0.00-0.30) K/uL Abs Immat Gran (auto) 0.00 (0.00-0.30) K/uL Imm/Tot Granulo (auto) 0.2 % Sodium 137 (135-149) mmol/L Potassium 3.6 (3.6-5.1) mmol/L Chloride 100 (96-114) mmol/L Carbon Dioxide 27 (20-32) mmol/L Anion Gap 10 (7-15) mEq/L BUN 16 (7-30) mg/dL Creatinine 1.2 (0.5-1.5) mg/dL Estimated Creat Clear 70.59 Estimated GFR 70 ml/min Glucose 235 H (60-115) mg/dL Lactate 1.5 (0.5-1.9) mmol/L Calcium 9.4 (8.4-10.6) mg/dL Total Bilirubin 2.3 H (0.1-1.5) mg/dL AST 23 (12-35) U/L ALT 26 (4-50) U/L Alkaline Phosphatase 110 (40-150) U/L Total Protein 7.8 (6.0-8.3) g/dL Albumin 4.9 (3.3-5.0) g/dL Lipase 97 (23-300) U/L Urine Color Yellow (Yellow) Urine Appearance Clear (Clear) Urine pH 7.0 (5.0-8.5) Ur Specific [place] 1.015 (1.000-1.030) Urine Protein Negative (Negative) Urine Glucose (UA) 1+ A (Negative) Urine Ketones 2+ A (Negative) Urine Blood Negative (Negative) Urine Nitrite Negative (Negative) Urine Bilirubin Negative (Negative) Urine Urobilinogen 0.2 (0.2-1.0) Ur Leukocyte Esterase Negative (Negative) Urine RBC 0-2 (0-2) Urine WBC 0-2 (0-5) Ur Squamous Epith Cells Few (None-Few) Urine Bacteria None (None) SARS-CoV-2 (PCR) Negative SARS-CoV-2 (Negative) Influenza Type A (PCR) Negative PCR FLU A (Negative) Influenza Type B (PCR) Negative PCR FLU B (Negative) RSV (PCR) Negative PCR RSV (Negative) Imaging Data CT scan - abdomen: Attestation: I have reviewed the pertinent imaging results. Radiologist's impression: Impression: 1. Obstructing left 9 millimeter proximal ureteral stone with mild to moderate hydronephrosis. 2. Additional nonobstructing left renal stone present. Discharge Plan Discharge Prescriptions: No Action metformin 500 mg tablet 250 mg PO BID Qty: 90 3RF Rx Instructions: take 1/2 po bid with meals amlodipine 5 mg tablet 5 mg PO DAILY Qty: 90 3RF lisinopril 40 mg tablet 40 mg PO QDAY Qty: 90 3RF simvastatin 20 mg tablet 20 mg PO QDAY Qty: 90 3RF milk thistle 150 mg capsule 150 mg PO BID Rx Instructions: give with meal/snack Follow Up/Referrals: Leland Suero MD [Primary Care Provider] -
--- NOTE | 2024-04-11 22:57 | CRLHL7_ITS ---
For Patients: As a result of the Century Cures Act, medical imaging exams and procedure reports are released immediately into your electronic medical record. You may view this report before your referring provider. If you have questions, please contact your health care provider. Indication: Left upper quadrant abdominal pain, vomiting Technique: CT through the abdomen and pelvis following 106 mL Isovue 370 IV contrast Comparison: CT abdomen and pelvis performed 09/16/2011 Findings: Lower chest: No acute abnormality appreciated. Hepatobiliary: No significant parenchymal abnormality is appreciated. Cholecystectomy. Spleen: Unremarkable. Pancreas: No acute abnormality appreciated. Adrenal glands: No acute abnormality appreciated. Kidneys: [id number] left hydronephrosis. Proximal left ureteral stone measures 9 millimeters. Additional nonobstructing left collecting system stone present. Delayed left nephrogram. Bowel: No obstruction. No focal perienteric or pericolonic stranding is appreciated. Vascular: Atherosclerosis. Lymph nodes: No gross lymphadenopathy. Peritoneum: No free air. No free fluid. : No acute abnormality appreciated. Soft tissues: No acute abnormality appreciated. Bones: No acute fracture. No lytic or blastic lesion. Impression: 1. Obstructing left 9 millimeter proximal ureteral stone with mild to moderate hydronephrosis. 2. Additional nonobstructing left renal stone present. Please note that all CT scans at this facility use dose modulation, iterative reconstruction, and/or weight-based dosing when appropriate to reduce radiation dose to as low as reasonably achievable. Dictated by Geovanni Trinidad MD @ 04/12/2024 12:29:54 AM (Electronically Signed)
[2024-04-11] MEDS: 0.9 % SODIUM CHLORIDE 500 ML 500 ML IV (23:15)
[2024-04-11] MEDS: ONDANSETRON 2 MG/ML inj 4 MG IVP (23:16)
[2024-04-11] MEDS: HYDROmorphone 0.5 mg/0.5 ml inj IVP (23:16)
[2024-04-11 23:28] LABS: Lactate* 1.5 mmol/L (0.5-1.9)
[2024-04-11 23:32] LABS: Basophils Percent Auto 0.2 % (0.0-3.0); Eosinophils Percent Auto 0.1 % (0.0-7.0); Hematocrit 47.7 % (37.0-53.0); Hemoglobin* 16.4 gm/dL (13.5-17.5); Immature Granulocytes Pct Auto 0.2 %; Lymphocytes Percent Auto 6.1 % (20-44); Mean Corpuscular HGB Conc 34 gm/dL (32-36); Mean Corpuscular Hemoglobin 30 pg (26-34); Mean Corpuscular Volume 87 fL (80-100); Monocytes Percent Auto 4.8 % (0.0-11.0); Neutrophils Percent Auto 88.6 % (42.0-72.0); Platelet Count* 212 K/uL (140-440); RDW Coefficient of Variation % 12.2 % (11.5-15.5); Red Blood Count 5.48 m/uL (4.30-5.90); White Blood Count* 12.22 K/uL (4.50-11.00)
[2024-04-11 23:33] LABS: Slide Review Reflex No
[2024-04-11 23:48] LABS: Albumin* 4.9 g/dL (3.3-5.0)
[2024-04-11 23:49] LABS: Chloride* 100 mmol/L (96-114); Potassium* 3.6 mmol/L (3.6-5.1); Sodium* 137 mmol/L (135-149)
[2024-04-11 23:51] LABS: Anion Gap 10 mEq/L (7-15); Aspartate Amino Transferase* 23 U/L (12-35); Bilirubin Total* 2.3 mg/dL (0.1-1.5); Carbon Dioxide* 27 mmol/L (20-32); Creatinine* 1.2 mg/dL (0.5-1.5); Est. Creatinine Clearance* 70.59; Estimated Glomerular Filt Rate 70 ml/min; Total Protein* 7.8 g/dL (6.0-8.3)
[2024-04-11 23:52] LABS: Alanine Aminotransferase* 26 U/L (4-50); Alkaline Phosphatase* 110 U/L (40-150); Blood Urea Nitrogen* 16 mg/dL (7-30); Calcium* 9.4 mg/dL (8.4-10.6); Glucose* 235 mg/dL (60-115); Lipase* 97 U/L (23-300)
[2024-04-12] VITALS (43 sets, daily range): BP systolic 150–190; BP diastolic 87–105; PULSE 57–108; RESP 16–20; O2SAT 92–98
[2024-04-12] MEDS: HYDROmorphone 0.5 mg/0.5 ml inj IVP ×7 (00:24→20:15)
[2024-04-12 00:53] LABS: Appearance Urine Clear (Clear); Bilirubin Urine Negative (Negative); Blood Urine Negative (Negative); Color Urine Yellow (Yellow); Glucose Urine 1+ (Negative); Ketones Urine 2+ (Negative); Leukocyte Esterase Urine Negative (Negative); Nitrite Urine Negative (Negative); Protein Urine Negative (Negative); Specific Gravity Urine 1.015 (1.000-1.030); Urobilinogen Urine 0.2 (0.2-1.0)
[2024-04-12 00:55] LABS: RBC Urine 0-2 (0-2); Squamous Epithelial Cell Urine Few (None-Few); WBC Urine 0-2 (0-5)
[2024-04-12] MEDS: 0.9 % SODIUM CHLORIDE 1000 ml 1,000 ML 125 ML IV ×3 (01:45→18:03)
[2024-04-12] MEDS: ONDANSETRON 2 MG/ML inj 4 MG IVP ×2 (04:35→18:16)
[2024-04-12] MEDS: KETOROLAC 15 MG/ML inj IVP (10:51)
[2024-04-12] MEDS: AMLODIPINE 5 MG TABLET PO (18:00)
[2024-04-12] MEDS: lisinopriL 20 MG TABLET 40 MG PO (18:00)
[2024-04-12] MEDS: TAMSULOSIN HCL 0.4 MG CAPSULE PO (18:00)
== END 2024-04-12 20:50 | disposition home or self-care (01) ==
PROVIDERS: Student in an Organized Health Care Education/Training Program; Emergency Provider Emergency Medicine; PCP Family Medicine
DX: R36.9 Urethral discharge, unspecified (principal)
CPT/HCPCS: 36415; 74177; 80053; 81001; 83605; 83690; 85025; 87631; 96374; 96375; 96376; 99284; A0425; A0427; A9270; J1171; J1885; J2405; J7030; Q9967

== ENCOUNTER 2024-04-18 10:38 | Emergency (ER) | payer OTHER, SELFPAY ==
[2024-04-18 10:48] VITALS: BP 139/98; PULSE 102; RESP 16; TEMP 36.7; BMI 29.3
--- NOTE | 2024-04-18 11:24 | CRLHL7_ITS ---
For Patients: As a result of the Century Cures Act, medical imaging exams and procedure reports are released immediately into your electronic medical record. You may view this report before your referring provider. If you have questions, please contact your health care provider. Indication: Severe bleeding around catheter. Technique: Ultrasound of the kidneys and bladder was performed with grayscale and color Doppler imaging. Comparison: CT 04/11/2024. Findings: Right kidney measures 11.1 cm in length and left kidney measures 12.4 cm in length. Normal renal size and cortical thickness. Normal renal echogenicity. No hydronephrosis. Left lower pole renal calculus measures up to 5 mm. The previously seen left ureteropelvic junction calculus is not well visualized sonographically. No renal cyst or mass. No perinephric fluid. Bladder: A urinary catheter is seen within the decompressed bladder. Bladder volume measures 23 mL. Circumferential bladder wall thickening is present. A small amount of air is seen within the non dependent portion of the bladder and there is also a small amount of bladder debris. Bilateral ureteral jets are visualized on color Doppler. Echogenic structure within the dependent portion of the bladder on long cine images may represent small bladder calculi seen on recent CT. The prostate is enlarged with prostate volume measuring 58.2 mL. Impression: 1. Previously seen left hydronephrosis and ureteropelvic junction calculus are not visualized on today`s examination. 2. Nonobstructing left renal calculus measures 5 mm. 3. Interval placement of a urinary catheter with decompressed bladder. Mild bladder wall thickening which may be due to underdistention versus cystitis. Small amount of bladder debris. Echogenic foci within the bladder likely represent small bladder calculi as seen on recent CT. 4. Prostatomegaly. Dictated by Jennifer Garza MD @ 04/18/2024 12:32:38 PM (Electronically Signed)
[2024-04-18 11:55] LABS: Basophils Absolute Auto 0.03 K/uL (0.00-0.30); Basophils Percent Auto 0.5 % (0.0-3.0); Eosinophils Absolute Auto 0.16 K/uL (0.00-0.50); Eosinophils Percent Auto 2.8 % (0.0-7.0); Hematocrit 37.8 % (37.0-53.0); Hemoglobin* 13.2 gm/dL (13.5-17.5); Immature Granulocytes Abs Auto 0.01 K/uL (0.00-0.30); Immature Granulocytes Pct Auto 0.2 %; Lymphocytes Percent Auto 16.3 % (20-44); Mean Corpuscular HGB Conc 35 gm/dL (32-36); Mean Corpuscular Hemoglobin 30 pg (26-34); Mean Corpuscular Volume 87 fL (80-100); Monocytes Percent Auto 8.7 % (0.0-11.0); Neutrophils Absolute Auto 4.04 K/uL (1.7-7.0); Neutrophils Percent Auto 71.5 % (42.0-72.0); Platelet Count* 198 K/uL (140-440); RDW Coefficient of Variation % 12.1 % (11.5-15.5); Red Blood Count 4.36 m/uL (4.30-5.90); White Blood Count* 5.65 K/uL (4.50-11.00)
[2024-04-18 11:57] LABS: Slide Review Reflex No
[2024-04-18 12:01] LABS: Chloride* 104 mmol/L (96-114); Potassium* 3.4 mmol/L (3.6-5.1); Sodium* 138 mmol/L (135-149)
--- NOTE | 2024-04-18 12:03 | ED.MALEGU ---
HPI - Male Genitourinary General Date Seen: 04/18/24 Chief complaint: Urogenital Problems, Male Stated complaint: excessive bleeding from penis Time Seen by Provider: 04/18/24 10:39 Source: patient Mode of arrival: ambulatory Limitations: no limitations History of Present Illness HPI Narrative: Patient is a 58-year-old male presenting for bleeding from his urethra. Last week he had a kidney stone removed and a stent placed in his ureter. He had some difficulty urinating a large amount of blood clots which eventually lead him needing a Pelayo. On Thursday it got clogged with blood clots and had to be irrigated multiple times at [facility], this was where the Pelayo was placed initially. He also had some bleeding around the Pelayo at that time along with blood in his urine. Today he noticed a large amount of bleeding from his urethra. He states it was squirting out using the pull out a clot from his urethra. He has not noticed any blood in his Pelayo bag though. The bleeding has since improved but he was concerned due to having von Willebrand's disease and came to the emergency department for evaluation. He does state as far as he noticed a severe case of von Willebrand's disease. Denies lightheadedness, weakness, numbness, vision changes, chest pain, shortness of breath. Does feel like he has been having some left lower abdominal pain but does note he kinked the Pelayo catheter to being was born in his underwear and is still kinked at this time. Related Data Home Medications ?Medication ?Instructions ?Recorded ?Confirmed milk thistle 150 mg capsule 150 mg PO BID 10/21/21 04/18/24 metformin 500 mg tablet 250 mg PO BIDWM 04/12/24 04/18/24 simvastatin 20 mg tablet 20 mg PO DAILY 04/12/24 04/18/24 Previous Rx's ?Medication ?Instructions ?Recorded amlodipine 5 mg tablet 5 mg PO DAILY #90 tabs 09/29/23 lisinopril 40 mg tablet 40 mg PO QDAY #90 tabs 09/29/23 Allergies Allergy/AdvReac Type Severity Reaction Status Date / Time aspirin Allergy Severe Vonwillenbrand's Verified 04/18/24 13:41 disease Review of Systems Status of ROS: Reports: 10 or more systems reviewed and unremarkable except as noted in History and below [facility] Medical History 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, unspecified eye (ICD-10) Osteoarthritis of right knee ?M17.11 - Unilateral primary osteoarthritis, right knee (ICD-10) Osteoarthritis of left knee ?M17.12 - Unilateral primary osteoarthritis, left knee (ICD-10) Tobacco use (07/26/09) ?Z72.0 - Tobacco use (ICD-10) Right inguinal hernia (06/07/09) ?K40.90 - Unilateral inguinal hernia, without obstruction or gangrene, not specified as recurrent (ICD-10) Plantar fasciitis ?M72.2 - Plantar fascial fibromatosis (ICD-10) Pain of left lower extremity ?M79.605 - Pain in left leg (ICD-10) Low back pain (06/07/09) ?M54.50 - Low back pain, unspecified (ICD-10) Ingrowing toenail of left foot ?L60.0 - Ingrowing nail (ICD-10) History of depression (07/26/09) ?Z86.59 - Personal history of other mental and behavioral disorders (ICD-10) Heel pain ?M79.673 - Pain in unspecified foot (ICD-10) Encounter for pre-operative examination ?Z01.818 - Encounter for other preprocedural examination (ICD-10) Encounter for annual physical exam ?Z00.00 - Encounter for general adult medical examination without abnormal findings (ICD-10) Dysphagia ?R13.10 - Dysphagia, unspecified (ICD-10) Cough in adult ?R05.9 - Cough, unspecified (ICD-10) Surgical History H/O medial meniscus repair of left knee (10/13/23) ?Z98.890 - Other specified postprocedural states (ICD-10) S/P medial meniscus repair of right knee (07/30/21) ?Z98.890 - Other specified postprocedural states (ICD-10) History of inguinal hernia repair (06/07/09) ?Z98.890 - Other specified postprocedural states (ICD-10) ?Z87.19 - Personal history of other diseases of the digestive system (ICD-10) History of cholecystectomy (08/06/10) ?Z90.49 - Acquired absence of other specified parts of digestive tract (ICD-10) History of appendectomy (07/26/09) ?Z90.49 - Acquired absence of other specified parts of digestive tract (ICD-10) Social History Narrative: Hx tobacco use Smoking Status: Former smoker What tobacco products do you use: cigarettes Smoking quit date/years: >15 years ago Do you use any of these nicotine containing products: None Second hand tobacco smoke exposure: No How often do you have a drink containing alcohol: monthly or less Alcohol type: beer How many standard drinks containing alcohol do you have on a typical day: 1 or 2 How often do you have six or more drinks on one occasion: Never AUDIT-C Alcohol total score: 1 Non-prescribed substance use: denies use Caffeine: Yes service: No Exam Narrative: Exam Narrative: Const: Well-nourished, Well-developed, in mild distress Eyes: PERRL, no conjunctival injection, and symmetrical lids HENT: Atraumatic external nose and ears. Moist mucous membranes. Neck: Symmetric, trachea midline, No thyromegaly. CVS: RRR, No murmurs or gallops. Peripheral pulses 2+ and equal in all extremities RESP: Unlabored respiratory effort. Clear to auscultation bilaterally. GI: Nontender/Nondistended, No rebound or guarding. : Blood seen around the urethral meatus. Blood stable in his underwear and already had he is currently wearing. There is blood see on the old catheter were was able. His urethra. No active bleeding noted. No blood inside of the Pelayo that I can see MSK:Extremities w/o deformity, Normal Active ROM Skin: Warm, Dry. No rashes or lesions. Neuro: Normal Muscle tone, No focal neurological deficits. Psych: Awake, Alert, & Oriented x3. Appropriate mood and affect. Const: Vital Signs, click to edit/add: Vital Signs - 24 hr 04/18/24 10:48 04/18/24 14:07 Temperature 98.0 F Pulse Rate 84 Pulse Rate [Pulse Oximeter] 102 H Respiratory Rate 16 16 Blood Pressure 147/86 H Blood Pressure [Ri ght Upper Arm] 139/98 H Pulse Oximetry 98 Oxygen Delivery Me thod Room Air Room Air Oxygen Flow Rate 98 Course Vital Signs Vital signs: Initial Vital Signs Temperature 98.0 F 04/18/24 10:48 Temperature Source Temporal Artery Scan 04/18/24 10:48 Pulse Rate 102 H 04/18/24 10:48 Respiratory Rate 16 04/18/24 10:48 Blood Pressure 139/98 H 04/18/24 10:48 Blood Pressure Mean 111 H 04/18/24 10:48 Oxygen Delivery Method Room Air 04/18/24 10:48 Oxygen Flow Rate 98 04/18/24 10:48 Vital Signs Temperature 98.0 F 04/18/24 10:48 Pulse Rate 102 H 04/18/24 10:48 Respiratory Rate 16 04/18/24 10:48 Blood Pressure 139/98 H 04/18/24 10:48 Oxygen Delivery Method Room Air 04/18/24 10:48 Oxygen Flow Rate 98 04/18/24 10:48 Temperature 98.0 F 04/18/24 10:48 Pulse Rate 84 04/18/24 14:07 Respiratory Rate 16 04/18/24 14:07 Blood Pressure 147/86 H 04/18/24 14:07 Pulse Oximetry 98 04/18/24 14:07 Oxygen Delivery Method Room Air 04/18/24 14:07 Oxygen Flow Rate 98 04/18/24 10:48 Medications Administered Medications: Discontinued Medications Generic Name Dose Route Start Last Admin Trade Name Freq PRN Reason Stop Dose Admin Desmopressin Acetate 20 mcg 04/18/24 11:29 04/18/24 12:07 Desmopressin Acetate 4 Mcg/Ml Inj IVP 04/18/24 11:30 20 mcg ONCE ONE Administration MDM - Male Genitourinary MDM Narrative Medical decision making narrative: Patient is a 58-year-old male presenting to emergency department for large amount of bleeding from his urethra. He has a Pelayo in. I will do an ultrasound of his kidneys and bladder to look for signs of blood. But also check a CBC and BMP along with coags. I cannot give him von Willebrand's factor as we do not stock he started will give him DDAVP. Will check a urinalysis. Will continue to monitor. Ultrasound initially ordered and this showed that the previous stones at the ureteropelvic junction are not visualized and there is a normal instructed left renal calculus. The bladder is decompressed with some mild bladder wall thickening which could relate to cystitis. There is a small amount bladder debris. His lab work shows no concerning findings. His hemoglobin slightly lower than baseline but still early acceptable level at 13.2. Urinalysis ordered. A signed do CT scan to better evaluate everything to make sure there is no obvious signs of worsening hemorrhage. The CT scan showed similar findings to the ultrasound. He does have a large prostate. Bleeding has since stopped and there is only 10-25 red blood cells seen in his urine. The urine in his Pelayo does not appear overtly bloody. Considering this is 2nd time this bleeding is happened I did speak to the urologist NGA conduit bender at [facility]. She believes the catheter is likely agitating his prostate causing the bleeding along with his Von Willebrand's disease. Considering bleeding has since stopped she does recommend leaving the Pelayo in at this time and have him go to his voiding trial in the morning to have it removed. I spoke to the patient and his about this plan and they are agreeable. I did explain to return for any new or worsening symptoms. Lab Data Labs: Lab Results 04/18/24 04/18/24 Range/Units 11:34 13:15 WBC 5.65 (4.50-11.00) K/uL RBC 4.36 (4.30-5.90) m/uL Hgb 13.2 L (13.5-17.5) gm/dL Hct 37.8 (37.0-53.0) % MCV 87 (80-100) fL MCH 30 (26-34) pg MCHC 35 (32-36) gm/dL RDW Coeff of Abelardo 12.1 (11.5-15.5) % Plt Count 198 (140-440) K/uL Neut % (Auto) 71.5 (42.0-72.0) % Lymph % (Auto) 16.3 L (20-44) % [place] % (Auto) 8.7 (0.0-11.0) % Eos % (Auto) 2.8 (0.0-7.0) % Baso % (Auto) 0.5 (0.0-3.0) % Neut # (Auto) 4.04 (1.7-7.0) K/uL Lymph # (Auto) 0.90 (0.90-2.90) K/uL [place] # (Auto) 0.50 (0.00-0.90) K/UL Eos # (Auto) 0.16 (0.00-0.50) K/uL Baso # (Auto) 0.03 (0.00-0.30) K/uL Abs Immat Gran (auto) 0.01 (0.00-0.30) K/uL Imm/Tot Granulo (auto) 0.2 % INR 0.98 (0.91-1.10) APTT 32 (23-33) Seconds Sodium 138 (135-149) mmol/L Potassium 3.4 L (3.6-5.1) mmol/L Chloride 104 (96-114) mmol/L Carbon Dioxide 28 (20-32) mmol/L Anion Gap 6 L (7-15) mEq/L BUN 11 (7-30) mg/dL Creatinine 0.9 (0.5-1.5) mg/dL Estimated Creat Clear 94.13 Estimated GFR 98 ml/min Glucose 169 H (60-115) mg/dL Calcium 8.5 (8.4-10.6) mg/dL Urine Color Dark yellow (Yellow) Urine Appearance Cloudy A (Clear) Urine pH 5.5 (5.0-8.5) Ur Specific [place] 1.025 (1.000-1.030) Urine Protein 1+ A (Negative) Urine Glucose (UA) Negative (Negative) Urine Ketones Trace A (Negative) Urine Blood 3+ A (Negative) Urine Nitrite Negative (Negative) Urine Bilirubin Negative (Negative) Urine Urobilinogen 0.2 (0.2-1.0) Ur Leukocyte Esterase 1+ A (Negative) Urine RBC 10-25 A (0-2) Urine WBC 2-5 (0-5) Ur Squamous Epith Cells None (None-Few) Amorphous Sediment Few A (None) Urine Bacteria None (None) Imaging Data CT scan abdomen and pelvis: Attestation: I have reviewed the pertinent imaging results. Radiologist's impression: 1. Mild left hydronephrosis with interval placement of a left ureteral stent as described above. Previously noted left ureteropelvic junction stone is no longer identified with multiple nonobstructing stone fragments within the left kidney. Mildly heterogeneous enhancement of the left kidney, likely secondary to the given history of lithotripsy. No significant perinephric hematoma. 2. Prostatic enlargement with bladder wall thickening which can be related to limited distention versus cystitis. Small bladder stones, largest measuring 5 millimeters. Please note that all CT scans at this facility use dose modulation, iterative reconstruction, and/or weight-based dosing when appropriate to reduce radiation dose to as low as reasonably achievable. Dictated by Humberto Chávez MD @ 04/18/2024 1:55:34 PM Renal and bladder ultrasound: Attestation: I have reviewed the pertinent imaging results. Radiologist's impression: 1. Previously seen left hydronephrosis and ureteropelvic junction calculus are not visualized on today`s examination. 2. Nonobstructing left renal calculus measures 5 mm. 3. Interval placement of a urinary catheter with decompressed bladder. Mild bladder wall thickening which may be due to underdistention versus cystitis. Small amount of bladder debris. Echogenic foci within the bladder likely represent small bladder calculi as seen on recent CT. 4. Prostatomegaly. Dictated by Jennifer Garza MD @ 04/18/2024 12:32:38 PM Discharge Plan Discharge Clinical Impression: Bleeding from the urethra Patient Disposition: Home, Self-Care Condition: Stable Additional Instructions: Your urologist team believes bleeding is caused by irritation of your enlarged prostate by the fully. Considering bleeding has since stopped the recommend following up tomorrow morning for your voiding trial to at the fully removed then. If the bleeding becomes severe again like it was today or you start feeling lightheaded return for re-evaluation. You can also return for any other new or worsening symptoms Prescriptions: No Action amlodipine 5 mg tablet 5 mg PO DAILY Qty: 90 3RF lisinopril 40 mg tablet 40 mg PO QDAY Qty: 90 3RF milk thistle 150 mg capsule 150 mg PO BID Rx Instructions: give with meal/snack metformin 500 mg tablet 250 mg PO BIDWM Rx Instructions: take 1/2 po bid with meals simvastatin 20 mg tablet 20 mg PO DAILY Follow Up/Referrals: Leland Suero MD [Primary Care Provider] - Stand Alone Forms: MyHealth Info Instructions
[2024-04-18 12:04] LABS: Anion Gap 6 mEq/L (7-15); Blood Urea Nitrogen* 11 mg/dL (7-30); Carbon Dioxide* 28 mmol/L (20-32); Creatinine* 0.9 mg/dL (0.5-1.5); Est. Creatinine Clearance* 94.13; Estimated Glomerular Filt Rate 98 ml/min; Glucose* 169 mg/dL (60-115); INR 0.98 (0.91-1.10); Prothrombin Time 13.6 Seconds
[2024-04-18 12:05] LABS: Calcium* 8.5 mg/dL (8.4-10.6); Partial Thromboplastin Time* 32 Seconds (23-33)
[2024-04-18] MEDS: DESMOPRESSIN ACETATE 4 MCG/ML inj 20 MCG IVP (12:07)
--- NOTE | 2024-04-18 13:00 | CRLHL7_ITS ---
For Patients: As a result of the Century Cures Act, medical imaging exams and procedure reports are released immediately into your electronic medical record. You may view this report before your referring provider. If you have questions, please contact your health care provider. INDICATION: Patient with ureteral stone status post lithotripsy and stent placement. Now bleeding from Pelayo catheter. TECHNIQUE: Axial images were obtained from the diaphragm to the pubic symphysis. Reformats were obtained in the coronal and sagittal plane. IV Contrast: 113 cc Isovue 370 Oral Contrast: None COMPARISON: Abdomen and pelvis CT 04/11/2024 FINDINGS: Lower chest: 2 millimeter right lower lobe pulmonary nodule, stable compared to the prior exam (3, 8). Mild gynecomastia. Liver: Unremarkable. Normal in size and attenuation. No masses. Gallbladder and bile ducts: Status post cholecystectomy with normal diameter common duct. Spleen: Unremarkable. Normal in size without mass. Pancreas: Unremarkable. No mass or inflammation. Adrenal glands: Unremarkable. No nodules. Kidneys: Normal enhancement of the right kidney without hydronephrosis. Delayed nephrogram on the left with some inhomogeneous enhancement of the left kidney which may be related to interval lithotripsy per history. Previously noted ureteropelvic junction stone is no longer seen with some fragments identified at the level of the calices. These include 2 millimeter and 7 x 5 millimeter fragments at the lower pole a 4 x 4 millimeter fragment of the midpole 3 1 millimeter fragments at the mid left kidney and an upper pole stone measuring 6 x 4 millimeters. Stent has proximal coil at an upper pole calyx and distal coil at the margin of the left ureterovesicular junction. No definite stones identified along the course of the stent. Mild left hydronephrosis with periureteral fat stranding. Vasculature: Atherosclerosis without abdominal aortic aneurysm. GI tract: Stomach is unremarkable. No dilated loops of large or small intestine with moderate to large amount of stool within the colon. Pelvis: Moderate prostatic enlargement with Pelayo catheter in the bladder. Dependent stones within the bladder, largest measuring 5 millimeters. Small amount of air within the bladder lumen, likely related to Pelayo catheter placement. Trace free fluid within the deep pelvis. Bones: Degenerative disc disease L5-S1 IMPRESSION: 1. Mild left hydronephrosis with interval placement of a left ureteral stent as described above. Previously noted left ureteropelvic junction stone is no longer identified with multiple nonobstructing stone fragments within the left kidney. Mildly heterogeneous enhancement of the left kidney, likely secondary to the given history of lithotripsy. No significant perinephric hematoma. 2. Prostatic enlargement with bladder wall thickening which can be related to limited distention versus cystitis. Small bladder stones, largest measuring 5 millimeters. Please note that all CT scans at this facility use dose modulation, iterative reconstruction, and/or weight-based dosing when appropriate to reduce radiation dose to as low as reasonably achievable. Dictated by Humberto Chávez MD @ 04/18/2024 1:55:34 PM (Electronically Signed)
[2024-04-18 13:50] LABS: Appearance Urine Cloudy (Clear); Bilirubin Urine Negative (Negative); Blood Urine 3+ (Negative); Color Urine Dark yellow (Yellow); Glucose Urine Negative (Negative); Ketones Urine Trace (Negative); Leukocyte Esterase Urine 1+ (Negative); Nitrite Urine Negative (Negative); Protein Urine 1+ (Negative); Specific Gravity Urine 1.025 (1.000-1.030); Urobilinogen Urine 0.2 (0.2-1.0); pH Urine 5.5 (5.0-8.5)
[2024-04-18 14:00] LABS: Amorphous Sediment Urine Few
[2024-04-18 14:07] VITALS: BP 147/86; PULSE 84; RESP 16; O2SAT 98
== END 2024-04-18 15:14 | disposition home or self-care (01) ==
PROVIDERS: Emergency Provider Student in an Organized Health Care Education/Training Program; PCP Family Medicine
DX: N36.8 Other specified disorders of urethra (principal)
CPT/HCPCS: 36415; 74177; 76770; 80048; 81001; 85025; 85610; 85730; 87086; 99284; J2597; Q9967

== ENCOUNTER 2024-10-04 14:38 | Outpatient (CLI) | payer OTHER, SELFPAY | END 2024-10-04 14:39 | disposition home or self-care (01) | LOC: NFLDREF 10-08 10:51 | PROVIDERS: PCP Family Medicine; Referring Provider Family Medicine; Visit Provider Family Medicine | DX: I10 Essential (primary) hypertension (principal); E11.9 Type 2 diabetes mellitus without complications; R97.20 Elevated prostate specific antigen [PSA]; Z12.5 Encounter for screening for malignant neoplasm of prostate | CPT/HCPCS: 80053; 80061; G0103 ==

== ENCOUNTER 2024-10-09 12:52 | Emergency (ER) | payer OTHER, SELFPAY ==
--- OUTSIDE RECORDS SUMMARY | 2024-10-09 12:54 | XMS_ITS | Clinical Summary ---
Author Organization [email or web address] Address [address] [place] [id number] Care Team Providers Care Wastewater Treatment Supervisor Name Role Phone Leland Suero MD Primary Care Provider [phone] Allergies Active Allergy Reactions Criticality Noted Date Comments Aspirin, Buffered Other - Describe In Comment Field Unknown 12/19/2014 Von Willebrand Disease Aspirin Other - Describe In Comment Field Unknown 08/14/2009 Clotting disorder Von Willebrand Disease Medications amLODIPine (NORVASC) 5 mg tablet Take 1 tablet by mouth once daily. 0 6 Active simvastatin (ZOCOR) 20 mg tablet Take 20 mg by mouth once daily in the evening. 6 Active MILK THISTLE ORAL Take 1 Tablet by mouth once daily. Active famotidine (Pepcid) 20 mg tablet Take 20 mg by mouth once daily if needed for GI Upset or Heartburn. Active metFORMIN (GLUCOPHAGE) 500 mg tabletIndicati ons:Type 2 diabetes mellitus without complication, without long-term current use of insulin (HC) Hold this medicine until seen by your primary physician. Previous dose was half tablet twice daily. 5 Active acetaminophen (TYLENOL EXTRA STRGTH) 500 mg tablet Take 1,000 mg by mouth every 6 hours if needed for Headache or Pain. Max acetaminophen dose: 4000 mg in 24 hrs. Active lisinopriL (PRINIVIL; ZESTRIL) 40 mg tabletIndicati ons:HTN (hypertension) 1 tablet daily 5 Active tamsulosin 0.4 mg capsuleIndicat ions:Nephrolit hiasis Take 2 Capsules (0.8 mg) by mouth once daily after a meal. 180 Capsule 3 Active Active Problems Problem Noted Date Diagnosed Date Kidney stone 05/25/2024 Complicated UTI (urinary tract infection) 2024 Pyelonephritis of left kidney 05/04/2024 MAX (acute kidney injury) 05/04/2024 Vasovagal syncope 04/19/2024 Ureteral stent present 04/19/2024 Primary hypertension 04/19/2024 Type 2 diabetes mellitus wit hout complication, without long-term current use of insulin 04/19/2024 Benign prostatic hyperplasia with incomplete bladder emptying 04/19/2024 Von Willebrand disease 04/19/2024 Gross hematuria 04/19/2024 HTN (hypertension) 04/12/2024 HLD (hyperlipidemia) 04/12/2024 DM2 (diabetes mellitus, type 2) 04/12/2024 ACP (advance care planning) 04/12/2024 Hydronephrosis of left kidney 04/12/2024 MAX (acute kidney injury) 04/12/2024 Nephrolithiasis 04/12/2024 Pharyngoesophageal dysphagia 05/28/2016 Overview (05/28/2016): EGD 05/2016 normal Encounters Date Type Department Care Team Description 08/13/2024 Travel 07/14/2024 10:[address] [facility] [address] [place] [address] Gaurav Morales MBBS Bleeding from Last 3 Months Social History Tobacco Use Types Packs/Day Years Used Date Smoking Tobacco: Never Tobacco Cessation:Counseling Given: Yes Alcohol Use Standard Drinks/Week Comments Yes 0 (1 standard drink = 0.6 oz pur e alcohol) very rarely Social Connections Answer Date Recorded Do you often feel lonely or isolated from those around you? 0 05/04/2024 Financial Resource Strain Answer Date R ecorded Difficulty of Paying Living Expenses 3 04/12/2024 Difficulty of Paying Living Expenses Not on file 04/12/2024 Food Insecurity Answer Date Recorded Do you worry your food will run out before you are able to buy more? 1 05/04/2024 Transportation Needs Answer Date Record ed Does lack of transportation keep you from medica l appointments? 1 05/04/2024 Does lack of transportation keep you from work, meetings or getting things that you need? 1 05/04/2024 Housing Stability Answer Date Recorded What is your housing situation today? 1 05/04/2024 Interpersonal Safety Answer Date Record ed Are you being hit, kicked, p ushed or yelled at (see row info)? No 05/03/2024 Interpersonal Safety Abuse 12 - 18 Not on file 05/03/2024 Interpersonal Safety Ambulatory Vulnerability No t on file 05/03/2024 Utilities Answer Date Recorded Do you have trouble paying f or utilities (for example, heat, electricity, water, phone)? 1 05/04/2024 Sex and Gender Information Value Date Recorded Sex Assigned at Not on file Legal Sex Male 5:41 AM [employer] Gender Identity Not on file Sexual Orientation Not on file Obstetrics History Last Filed Vital Signs Vital Sign Reading Time Taken Comments Blood Pressure 139/76 05/25/2024 2:30 PM [employer] Pulse 82 07/07/2024 1:39 PM CDT Temperature 36.4 C (97.6 F) 05/25/2024 1:38 PM [employer] Respiratory Rate 16 05/25/2024 2:30 PM [employer] Oxygen Saturation 98% 07/07/2024 1:39 PM CDT Inhaled Oxygen Concentration - - Weight 99.3 kg (219 lb) 07/07/2024 1:39 PM CDT Height 180.3 cm (5' 11) 05/25/2024 10:32 AM [employer] Body Mass Index 30.54 05/25/2024 10:32 AM [employer] Plan of Treatment Health Maintenance Due Date Last Done Comments Tetanus booster 09/06/1975 Depression screening for age 12+ 1976 HIV for age 15-65 09/06/1979 BMI (ht and wt on same day) for age 18+ 1982 Hepatitis C screening for age 18-79 1982 Pneumococcal series for age 50+ (1 of 2 - PCV) 09/06/1983 Colonoscopy through age 75 2009 Lipids for age 45-75 2009 Zoster (shingles) series for age 50+ (1 of 2) 2014 Influenza Vaccine (#1) 2024 RSV vaccine for adults or (1 - 1-dose 75+ series) 09/06/2039 COVID-19 vaccine series Completed 02/08/20 24, 02/24/2023, 02/06/2022, Additional history exists Hepatitis B series for 19+ Aged Out N o longer eligible based on patient's age to complete this topic Medical Devices Implanted Type Area Greenhouse Transplanter Device Identifier Shelf Expiration Date Model / Serial / Lot Stent Uret [id number] Percuflex Hydroplus - [id number] Implanted:Qty: 1 on 04/13/2024 by Davin Amin MD at [facility] Left: Ureter [facility] U[facility] 12/16/2026 [id number] / / [id number] Stent Uret [id number] Percuflex Hydroplus - [id number] Implanted:Qty: 1 on 05/25/2024 by Sea Burrell MD at [facility] Left: Ureter [facility] U[facility] 12/13/2026 [id number] / / [id number] Insurance MED[employer] CHOICE Advance Directives * Full Code (Latest Code Status on File) Date Activated Date Inactivated Comments 05/25/2024 10:23 AM 05/25/2024 5:11 PM Should be d iscussed pre operatively with anesthesia or surgeon Question Answer Comments Code Status Discussion: Not Discussed * Full Code Date Activated Date Inactivated Comments 05/04/2024 1:03 AM 05/06/2024 6:40 PM Question Answer Comments Code Status Discussion: Reviewed Preferences * Full Code Date Activated Date Inactivated Comments 04/19/2024 4:23 PM 04/20/2024 7:17 PM Question Answer Comments Code Status Discussion: Reviewed Preferences * Full Code Date Activated Date Inactivated Comments 04/12/2024 10:42 PM 04/15/2024 8:05 PM Question Answer Comments Code Status Discussion: Reviewed Preferences Care Teams Wastewater Treatment Supervisor Relationship Specialty Start Date End Date Leland Suero MD [address], [place] [address] PCP - General Family Practice 05/05/24
[2024-10-09 12:59] VITALS: BP 179/95; PULSE 86; RESP 20; TEMP 36.9; O2SAT 99; BMI 29.8
--- NOTE | 2024-10-09 13:29 | ED.BACK ---
HPI - Back Pain/Injury General Date Seen: 10/09/24 Chief Complaint: Back Injury/Pain Stated Complaint: back injury Time Seen by Provider: 10/09/24 13:29 Source: patient and RN notes reviewed Mode of arrival: ambulatory Limitations: no limitations History of Present Illness HPI Narrative: Jovi is a very pleasant 59-year-old gentleman with a history of von Willebrand's disease, usually avoids aspirin and NSAIDs, history of low back pain, type 2 diabetes and hypertension who comes to the emergency room for evaluation of low back pain. Patient notes that yesterday he was moving some furniture around. He had the onset of right-sided low back pain but continued to move furniture was able to finish. Unfortunately, since that time he has had increasing discomfort that is now persistently a 5/10. It is worsened with any movement especially bending forward. He does have discomfort radiating down the anterior aspect of his right thigh not past the knee. He has not experienced any loss of bowel or bladder control or perineal numbness. In the past he has had intermittent low back pain with some mild sciatica but usually this would improve with exercises and stretching. Patient denies a history of cancer, recent trauma. Related Data Home Medications ?Medication ?Instructions ?Recorded ?Confirmed milk thistle 150 mg capsule 150 mg PO BID 10/21/21 05/10/24 metformin 500 mg tablet 250 mg PO BIDWM 04/12/24 10/09/24 simvastatin 20 mg tablet 20 mg PO DAILY 04/12/24 10/09/24 finasteride 5 mg tablet mg PO DAILY 05/02/24 05/10/24 tamsulosin 0.4 mg capsule mg PO QDAY 05/02/24 05/10/24 Previous Rx's ?Medication ?Instructions ?Recorded amlodipine 5 mg tablet 5 mg PO DAILY #90 tabs 09/29/23 lisinopril 40 mg tablet 40 mg PO QDAY #90 tabs 09/29/23 Allergies Allergy/AdvReac Type Severity Reaction Status Date / Time aspirin Allergy Severe Vonwillenbrand's Verified 05/10/24 10:53 disease Review of Systems Status of ROS: Reports: 6 or more systems reviewed and unremarkable except as noted in History and below [facility] Medical History PSA elevation ?R97.20 - Elevated prostate specific antigen [PSA] (ICD-10) 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, unspecified eye (ICD-10) Osteoarthritis of right knee ?M17.11 - Unilateral primary osteoarthritis, right knee (ICD-10) Osteoarthritis of left knee ?M17.12 - Unilateral primary osteoarthritis, left knee (ICD-10) Tobacco use (07/26/09) ?Z72.0 - Tobacco use (ICD-10) Right inguinal hernia (06/07/09) ?K40.90 - Unilateral inguinal hernia, without obstruction or gangrene, not specified as recurrent (ICD-10) Plantar fasciitis ?M72.2 - Plantar fascial fibromatosis (ICD-10) Pain of left lower extremity ?M79.605 - Pain in left leg (ICD-10) Low back pain (06/07/09) ?M54.50 - Low back pain, unspecified (ICD-10) Ingrowing toenail of left foot ?L60.0 - Ingrowing nail (ICD-10) History of depression (07/26/09) ?Z86.59 - Personal history of other mental and behavioral disorders (ICD-10) Heel pain ?M79.673 - Pain in unspecified foot (ICD-10) Encounter for pre-operative examination ?Z01.818 - Encounter for other preprocedural examination (ICD-10) Encounter for annual physical exam ?Z00.00 - Encounter for general adult medical examination without abnormal findings (ICD-10) Dysphagia ?R13.10 - Dysphagia, unspecified (ICD-10) Cough in adult ?R05.9 - Cough, unspecified (ICD-10) Surgical History H/O medial meniscus repair of left knee (10/13/23) ?Z98.890 - Other specified postprocedural states (ICD-10) S/P medial meniscus repair of right knee (07/30/21) ?Z98.890 - Other specified postprocedural states (ICD-10) History of inguinal hernia repair (06/07/09) ?Z98.890 - Other specified postprocedural states (ICD-10) ?Z87.19 - Personal history of other diseases of the digestive system (ICD-10) History of cholecystectomy (08/06/10) ?Z90.49 - Acquired absence of other specified parts of digestive tract (ICD-10) History of appendectomy (07/26/09) ?Z90.49 - Acquired absence of other specified parts of digestive tract (ICD-10) Social History Narrative: Hx tobacco use Smoking Status: Former smoker What tobacco products do you use: cigarettes Smoking quit date/years: >15 years ago Do you use any of these nicotine containing products: None Second hand tobacco smoke exposure: No How often do you have a drink containing alcohol: monthly or less Alcohol type: beer How many standard drinks containing alcohol do you have on a typical day: 1 or 2 How often do you have six or more drinks on one occasion: Never AUDIT-C Alcohol total score: 1 Non-prescribed substance use: denies use Caffeine: Yes service: No Exam Narrative: Exam Narrative: Patient is alert and oriented, nontoxic in appearance. Eyes are clear. Face symmetrical. Mentation and speech normal. Heart with regular rate and rhythm and lungs are clear. Examination of the low back shows no point tenderness along the lumbar thoracic spine or posterior superior iliac crest. There is some tenderness noted on the musculature insertion of latissimus Dorsi. The lower extremities strength and motor is intact. However it is very painful for flexion at the hip as well as extension at the knee. In fact this cause significant spasm in the low back. Otherwise lower extremity sensation and motor is intact DTRs 1+ bilaterally Const: Vital Signs, click to edit/add: Vital Signs - 24 hr 10/09/24 12:59 10/09/24 14:02 Temperature 98.4 F Pulse Rate [Pulse Oximeter] 86 75 Respiratory Rate 20 18 Blood Pressure [Ri ght Upper Arm] 179/95 H 150/94 H Pulse Oximetry 99 97 Oxygen Delivery Me thod Room Air Room Air Documenting provider has reviewed patient's vital signs: yes Course Course ED Course: Differential diagnosis includes but is not limited to muscular strain, lumbar disc disease. I do not suspect any intra-abdominal processes at this time. We discussed the need for some sort of anti-inflammatory in while luz does avoid NSAIDs because of his von Willebrand's he thinks that 1 dose of Toradol would be okay. Will also give him some morphine 10 mg to help with the discomfort at this time. Most importantly I do not note any red flag symptoms here today and patient has no recent history of trauma. At home he will be started on prednisone 20 mg p.o. b.i.d. x5 days. Given history as well as exam here today do not feel that he is in need of imaging at this time. Vital Signs Vital signs: Initial Vital Signs Temperature 98.4 F 10/09/24 12:59 Temperature Source Temporal Artery Scan 10/09/24 12:59 Pulse Rate 86 10/09/24 12:59 Respiratory Rate 20 10/09/24 12:59 Blood Pressure 179/95 H 10/09/24 12:59 Blood Pressure Mean 123 H 10/09/24 12:59 Blood Pressure Position Standing 10/09/24 12:59 Pulse Oximetry 99 10/09/24 12:59 Oxygen Delivery Method Room Air 10/09/24 12:59 Vital Signs Temperature 98.4 F 10/09/24 12:59 Pulse Rate 86 10/09/24 12:59 Respiratory Rate 20 10/09/24 12:59 Blood Pressure 179/95 H 10/09/24 12:59 Pulse Oximetry 99 10/09/24 12:59 Oxygen Delivery Method Room Air 10/09/24 12:59 Temperature 98.4 F 10/09/24 12:59 Pulse Rate 75 10/09/24 14:02 Respiratory Rate 18 10/09/24 14:02 Blood Pressure 150/94 H 10/09/24 14:02 Pulse Oximetry 97 10/09/24 14:02 Oxygen Delivery Method Room Air 10/09/24 14:02 Medications Administered Medications: Discontinued Medications Generic Name Dose Route Start Last Admin Trade Name Freq PRN Reason Stop Dose Admin Ketorolac Tromethamine 30 mg 10/09/24 13:42 10/09/24 13:51 Ketorolac 30 Mg/Ml Inj IM 10/09/24 13:43 30 mg ONCE ONE Administration Morphine Sulfate 10 mg 10/09/24 13:42 10/09/24 13:51 Morphine 10 Mg/Ml Inj IM 10/09/24 13:43 10 mg ONCE ONE Administration MDM - Back Pain/Injury MDM Narrative Medical decision making narrative: 1. Low back pain with right leg radiation-no red flag symptoms. Recommend initiation of prednisone 20 mg p.o. b.i.d. x5 days. Unfortunately he will not be able to continue on an NSAID for his discomfort. We are in a situation where he will likely not have pain relief with acetaminophen. Therefore will use Cheriton 5/325 1-2 tabs p.o. q.4-6 hours p.r.n. pain 12. With no refills given. Any further refills will need to go through his primary MD. He denies a history of addiction. In addition we use Flexeril 10 mg p.o. t.i.d. muscular spasm. Would rest recommend ice in lieu of heat, light activity and follow-up with physical therapy. 2. Disposition-home with at this time. Did give a note for no work for the next 72 hours as well as a physical therapy consult. Return to the ER for worsening symptoms, loss of bowel or bladder control, leg weakness and as needed. Medical Records Attestation: I reviewed the patient's medical records. Discharge Plan Discharge Clinical Impression: Low back pain radiating down leg Patient Disposition: Home, Self-Care Condition: Improved Additional Instructions: Suggest starting steroid today. For pain you may use Cheriton as needed. Please use this sparingly and be aware that you should probably start a stool softener as this medication tends to cause constipation. Flexeril as a muscle relaxer and may be used for muscular spasm. Do not take either of these medications with other sedating substances including alcohol and sleep medicines. Do not drive with these medicines. Will send physical therapy request to [facility]. The phone number is [phone] Return to the emergency room for genital numbness, loss of bowel or bladder control, worsening symptoms. Prescriptions: No Action amlodipine 5 mg tablet 5 mg PO DAILY Qty: 90 3RF lisinopril 40 mg tablet 40 mg PO QDAY Qty: 90 3RF finasteride 5 mg tablet PO DAILY tamsulosin 0.4 mg capsule PO QDAY Patient Comments: [NO ORIGINAL SIG] milk thistle 150 mg capsule 150 mg PO BID Rx Instructions: give with meal/snack metformin 500 mg tablet 250 mg PO BIDWM Rx Instructions: take 1/2 po bid with meals simvastatin 20 mg tablet 20 mg PO DAILY Follow Up/Referrals: Leland Suero MD [Primary Care Provider, Family Practice] Stand Alone Forms: [facility] Info Instructions
[2024-10-09 14:02] VITALS: BP 150/94; PULSE 75; RESP 18; O2SAT 97
== END 2024-10-09 14:04 | disposition home or self-care (01) ==
PROVIDERS: Emergency Provider Family Medicine; PCP Family Medicine
DX: M54.42 Lumbago with sciatica, left side (principal); D68.00 Von Willebrand disease, unspecified; E11.9 Type 2 diabetes mellitus without complications; I10 Essential (primary) hypertension; Z79.84 Long term (current) use of oral hypoglycemic drugs; Z87.891 Personal history of nicotine dependence
CPT/HCPCS: 96372; 99283; 99284; J1885; J2270

== ENCOUNTER 2024-10-10 18:29 | Outpatient (CLI) | payer OTHER, SELFPAY | END 2024-10-10 18:30 | disposition home or self-care (01) | LOC: NFLDREF 10-12 04:08 | PROVIDERS: PCP Family Medicine; Referring Provider Family Medicine; Visit Provider Family Medicine | DX: I10 Essential (primary) hypertension (principal); E11.9 Type 2 diabetes mellitus without complications | CPT/HCPCS: 82043; 82570 ==

== ENCOUNTER 2024-10-26 15:00 | Outpatient (RCR) | payer OTHER, SELFPAY ==
--- NOTE | 2024-10-12 17:16 | PT.OPE ---
PT [place] Outpatient Eval PT [facility] Outpatient Eval Start: 10/12/24 10:26 Freq: Status: Active Protocol: Document 10/12/24 17:15 CJT (Rec: 10/12/24 17:16 [id number]) E-signed By Varun Lawson PT Physical Therapy Outpatient Evaluation Insurance Information Recert Due Date 01/10/25 Insurance Name [employer] Medical Diagnosis R low back pain with radiation Treating Diagnosis M54.5 - low back pain Referring Coleen Mock Subjective Preferred Name Elkin Subjective Pt presents with complaints of low back pain. Patient was moving beds in and out of the bedroom in his home on 10/08/24 when he had the onset of right-sided low back pain but continued to move furniture as was able to finish with tolerable level of pain. [place] a sharp pain like an ice pick being put into his back briefly. His pain has increased since which he now rates as 5/10. Bending forward makes his pain worse. He had some discomfort radiating down the anterior aspect of his right thigh not past the knee, but this seems to have resolved. In the past he has had intermittent low back pain with some mild sciatica but usually this would improve with exercises and stretching.08/13 Date of Last 10/10/24 Physician Visit Current Work Status [employer] Precautions Therapy Limitations/ Not Limited Systems Review Objective Other/Pertinent Lumbar ROM Objective Extension - moderate limitations, no pain Flexion - can reach approx 2 inches from toes with minimal knee bend, no pain R/L Side Bend - moderate limitations, no pain R/L Rotation - moderate limitations, no pain R Hip ROM Flexion - 120 IR/ER - 12/34 L Hip ROM Flexion - 120 IR/ER - 14/25 B Hip Strength Flexion - 4+/5 MMT Abduction - 5/5 MMT Adduction - 5/5 MMT IR - 5/5 MMT ER - 5/5 MMT Extension - 4+/5 MMT R knee Extension - 5/5 MMT R Knee Flexion - 5/5 MMT L knee Extension - 5/5 MMT L knee Flexion - 5/5 MMT R ankle DF - 5/5 MMT L ankle DF - 5/5 MMT Palpation: pt reports pain/tenderness with palpation to R piriformis, PSIS Gait: no deviations noted DTRs: 1+ R patellar, 2+ L patellar and B Achilles tendon Special Testing Slump: positive for increased neural tension R>L, no pain in low back SLR: negative FADIR: negative ALEXEY: positive L>R for increased tissue tension Catalina's: positive bilaterally Piriformis: positive R Hamstring: minimally positive Pelvis: R anterior rotation Leg Length (R/L): 95.0cm/95.0cm Assessment Assessment/ Elkin is a very pleasant 59 year old Male who presents Impression to our clinic for evaluation and treatment of low back pain. Pts injury likely caused by excessive flexion of the spine, initially resembling a disc-type injury. All disc-related testing was negative this date and his pain is localized to R SIJ and piriformis. Elkin did report that bending forward causes his pain to increase and his range is limited, but he did not have pain or limitation in movement with lumbar flexion in the clinic today. Elkin also has excessive soft tissue tightness in B hip flexors, quads, and posterior hips. I do think that this tightness in his hips contributes to excessive lumbar flexion with bending motions which likely irritated his R SI joint. The nature of the pts condition was explained and all questions were answered to the pts satisfaction. Skilled PT services are medically necessary to address deficits and return patient to highest level of function. Recommend physical therapy sessions 1-2/week for 4-6 weeks. Pt agrees with this plan. Printout of HEP was given for I completion and pt gives verbal understanding of each exercise. Primary Functional Bending Limitations Plan of Care Rehabilitation Good Potential Physical Therapy STG - To be completed in 2-3 weeks: Goals 1. Pt will report reduction in back pain by factor of 2 so that they may perform all ADLs with tolerable level of pain. 2. Pt will demonstrate ability to perform pelvic tilt with good coordination as indication of appropriate firing of pelvic and lumbar stabilizing muscles to provide greater support for pelvis and lumbar spine. 3. Pt will demonstrate 5/5 MMT for all LE motions without reproduction of pain to provide greater support to pelvis and lumbar spine. LTG - To be completed in 4-6 weeks: 1. Pt to be I with HEP so that they may I manage progression of symptoms. 2. Pt will report ability to sleep through the night without waking due to pain so that they may wake well rested with reduced mental fatigue during working hours . 3. 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 Treatment Plan/ Dry Needling,Electrical Stimulation,Heat,Ice/Cold/ Direct Interventions Vasopneumatic,Joint Mobilization,Manual Therapy, Neuromuscular Re-ed,Self-Care/Home Management, Therapeutic Activities,Therapeutic Exercises Frequency/Duration 1-2/week for 4-6 weeks Patient Will Be Completion of LTG(s),Skills Plateau,Independent w/HEP, Discharged From Independently Progressing Therapy Evaluation Billing Untimed Code 45 Treatment Minutes PT Eval No Charge No Complexity Low Certification Information Initial 10/12/24 Certification Date Ending Certification 01/10/25 Date Provider Signature Yes Required Provider Signature POC & Medical Necessity Shows Agreement With Physician NPI Number Write NPI# Here Physician Comment/ : Change Physician Signature Please Sign/Date Here & Date Requested
== END 2025-01-10 14:23 | disposition home or self-care (01) ==
PROVIDERS: PCP Family Medicine; Visit Provider Family Medicine
DX: M54.16 Radiculopathy, lumbar region (principal); Z51.89 Encounter for other specified aftercare
CPT/HCPCS: 97110; 97140; 97161

== ENCOUNTER 2024-11-02 14:29 | Outpatient (CLI) | payer OTHER, SELFPAY | END 2024-11-02 14:30 | disposition home or self-care (01) | PROVIDERS: PCP Family Medicine; Referring Provider Family Medicine; Visit Provider Family Medicine | DX: I10 Essential (primary) hypertension (principal) | CPT/HCPCS: 80048 ==

== ENCOUNTER 2025-01-02 15:22 | Outpatient (CLI) | payer OTHER, SELFPAY ==
--- NOTE | 2025-01-02 15:45 | CRLHL7_ITS ---
For Patients: As a result of the Century Cures Act, medical imaging exams and procedure reports are released immediately into your electronic medical record. You may view this report before your referring provider. If you have questions, please contact your health care provider. INDICATION: Right leg pain COMPARISON: None. TECHNIQUE: A compression venous ultrasound exam was performed of the right lower extremity using gallegos-scale imaging, color Doppler and spectral Doppler analysis. FINDINGS: Sonographic imaging of the right lower extremity demonstrates normal compressibility and color Doppler venous blood flow within the common femoral vein, deep femoral vein, and the proximal greater saphenous vein. Within the thigh, the femoral vein is patent and compressible. At a lower level, the popliteal and posterior tibial veins also show normal compressibility and color Doppler venous blood flow. Limited imaging of the contralateral groin demonstrates a normal spectral waveform and color Doppler venous blood flow within the left common femoral vein. IMPRESSION: Normal venous ultrasound exam. No evidence of deep vein thrombosis within the right lower extremity. Dictated by Juan Miguel Bruce MD @ 01/03/2025 7:46:35 AM (Electronically Signed)
== END 2025-01-02 15:23 | disposition home or self-care (01) ==
LOC: US 15:22
PROVIDERS: PCP Family Medicine; Visit Provider Family Medicine
DX: M79.604 Pain in right leg (principal)
CPT/HCPCS: 93971

== ENCOUNTER 2025-03-08 15:03 | Outpatient (CLI) | payer OTHER, SELFPAY ==
--- NOTE | 2025-03-08 15:30 | CRLHL7_ITS ---
For Patients: As a result of the Century Cures Act, medical imaging exams and procedure reports are released immediately into your electronic medical record. You may view this report before your referring provider. If you have questions, please contact your health care provider. INDICATION: Radiculopathy. COMPARISON: 02/28/2025. 10/21/2013. TECHNIQUE: Sagittal T1, T2, and STIR sequences. Axial T1 and T2 weighted sequences. FINDINGS: Normal vertebral body alignment. No fractures. No vertebral body loss of height. No spondylolisthesis. No ligamentous injury. No suspicious osseous lesions. Normal conus terminates at L1. T12-L1: No spinal canal neural foraminal narrowing. L1-2: Progressive disc degeneration loss disc height. Chronic limbus deformity at the anterior inferior corner of L1. No narrowing of spinal canal. No neural foraminal narrowing. L2-3: Disc degeneration and posted disc bulge. No narrowing of the spinal canal. No neural foraminal narrowing. L3-4: Disc degeneration posted disc bulge. No narrowing of spinal canal. No neural foraminal narrowing. L4-5: Progress disc degeneration posted disc bulge. Mild narrowing of spinal canal. No neural foraminal narrowing. Mild facet arthropathy. L5-S1: Disc degeneration. Diffuse disc bulge eccentric to the right. No narrowing of the spinal canal no impingement of the traversing S1 nerve roots. Moderate narrowing of the bilateral neural foramina. Mild facet arthropathy. Degenerative changes of the SI joints. Normal paraspinal soft tissues. IMPRESSION: 1. Normal alignment. No fractures 2. Interval progression of lumbar spondylosis. 3. At L4-5, mild narrowing of the spinal canal 4. At L5-S1, moderate narrowing of the bilateral neural foramina Dictated by Jericho Joshua MD @ 03/09/2025 9:00:16 PM (Electronically Signed)
== END 2025-03-08 15:04 | disposition home or self-care (01) ==
LOC: MRI 15:03
PROVIDERS: PCP Family Medicine; Visit Provider Family Medicine
DX: M48.061 Spinal stenosis, lumbar region without neurogenic claudication (principal); M54.16 Radiculopathy, lumbar region; M51.369 Other intervertebral disc degeneration, lumbar region without mention of lumbar back pain or lower extremity pain; M48.07 Spinal stenosis, lumbosacral region; M47.816 Spondylosis without myelopathy or radiculopathy, lumbar region; M47.818 Spondylosis without myelopathy or radiculopathy, sacral and sacrococcygeal region
CPT/HCPCS: 72148